=== PATIENT | female | born 1955 | race Caucasian/White ===

== ENCOUNTER → 2019-01-18 07:59 | Outpatient (CLI) | payer OTHER, SELFPAY ==
--- NOTE | 2019-01-18 | DI.RAD.S_ITS ---
PROCEDURE: XR LUMBAR SPINE 2-3V INDICATIONS: Low back pain TECHNIQUE: 3 views of the lumbar spine were acquired. COMPARISON: None. FINDINGS: Bones: 5 [id number] vertebrae are present. There is normal bony alignment. No acute vertebral body compression fractures. Moderate-severe multilevel lumbar spondylosis throughout the imaged spine. There is associated mid and lower lumbar facet arthropathy. No suspicious bony lesions. Soft tissues: Overlying bowel gas pattern is normal. No suspicious soft tissue calcifications. IMPRESSION: No acute osseous abnormalities or malalignment. Moderate-severe multilevel lumbar spondylosis. Dictated by: Tito Valle M.D. on 01/18/2019 at 8:58 Approved by: Tito Valle M.D. on 01/18/2019 at 9:00
== END ==
PROVIDERS: PCP Family Medicine; Visit Provider Family Medicine
DX: M54.5 Low back pain (principal); M47.816 Spondylosis without myelopathy or radiculopathy, lumbar region
CPT/HCPCS: 72100

== ENCOUNTER → 2019-07-14 07:38 | Outpatient (CLI) | payer MEDICARE, OTHER, SELFPAY ==
--- NOTE | 2019-07-14 | DI.RAD.S_ITS ---
PROCEDURE: XR HIP W PEL IF DONE RT 2V INDICATIONS: RIGHT HIP PAIN TECHNIQUE: AP pelvis with lateral view(s) of the right hip(s). COMPARISON: None. FINDINGS: Bones: No fractures or dislocations. Pelvic ring appears intact. No suspicious bony lesions. There is mild superior joint space narrowing seen of both hips, with associated remodeling changes with subchondral sclerosis and osteophyte formation. Age-appropriate lower lumbar spine degenerative changes are noted. Soft tissues: The visualized bowel gas pattern is normal. No suspicious soft tissue calcifications. Pelvic phleboliths are incidentally noted. IMPRESSION: Mild degenerative changes are seen of both hips by plain film. If it would be helpful for clinical management decision making, please consider a dedicated hip MRI for further evaluation (assuming that there is no contraindication). If there is strong clinical concern for a labral abnormality, this should be performed according to the arthrogram protocol. Dictated by: Efrain Patel M.D. on 07/14/2019 at 8:18 Approved by: Efrain Patel M.D. on 07/14/2019 at 8:20
== END ==
PROVIDERS: PCP Family Medicine; Referring Provider Family Medicine; Visit Provider Family Medicine
DX: M25.551 Pain in right hip (principal); M25.751 Osteophyte, right hip; M25.752 Osteophyte, left hip
CPT/HCPCS: 73502

== ENCOUNTER 2019-09-11 13:45 | Outpatient (RCR) | payer MEDICARE, OTHER, SELFPAY ==
--- NOTE | 2019-09-04 16:37 | PT.OIE ---
Current Diagnoses Other spondylosis with radiculopathy, cervical region (09/04/19) Other intervertebral disc degeneration, lumbar region (09/04/19) Abnormal posture (09/04/19) Weakness (09/04/19) Visit Care Team Role Provider Type Maverick Ribeiro MD Family Provider Non-Staff Primary Care Provider Specialty: Family Practice Address: [address], [address], [place], [address] Email: Reji Gunter MD Attending Provider Physician Referring Provider Specialty: Orthopedic Surgery Address: [address] [place] [address], [id number] Email: [email or web address] Physical Therapy Initial Evaluation PT-OP-A Visit Information Start: 09/03/19 11:03 Freq: Status: Active Protocol: Document 09/04/19 13:47 [facility] (Rec: 09/04/19 14:38 [facility] [id number]) Out-Patient Physical Therapy Visit Information Visit Information Visit Type Initial Evaluation Visit Note 03/16 Visit Start Time 13:48 Visit Stop Time 14:30 Total Visit Minutes 42 Visit Number 1 Number of FULL STACK PYTHON DEVELOPER Visits 0 PT-OP-B Current Condition Start: 09/03/19 11:03 Freq: Status: Active Protocol: Document 09/04/19 13:47 [facility] (Rec: 09/04/19 14:38 [facility] [id number]) Current Condition History of Current Condition Onset Date years ago Current Complaints LBP and neck pain History of Current Condition Pt reports was having severe hip pain 3 months ago and was having trouble wt bearing and started taking collegan and the pain improved. The pain came out of no where. SHe works for a neuro Chiropractor and he couldn't find anything . Pt is also having neck pain and back pain that have both been happening for 20-40 years or so and has slowly gotten progressively worse. She had injections in her neck but they haven't help [facility]. In the past 6 months , has noticed her neck cracking. 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 Pt goes to the couch to sleep often d/t sleeping and her back pain and otherwise cannot get sleep. Prior Treatments and Tests injections for neck, massage, PT a long time ago Treatment Goals Patient/Caregiver Goals Gain some strength back, move around with less pain Personal Factors Other Personal Factors That May Effect MS, neck pain, back pain, Therapy/Recovery osteoperosis, asthma PT-OP-C Subjective Start: 09/03/19 11:03 Freq: Status: Active Protocol: Document 09/04/19 13:47 [facility] (Rec: 09/04/19 14:38 [facility] [id number]) Patient Questionnaires Neck Disability Index NDI Score 11/50 Quick Dash- Upper Extremity Quick Dash UE Score 11.36 Quick Dash UE Impairment 1 to 19% Impaired (Score 1-19) OP-PT Pain Assessment Location neck Pain Location Details post neck and B UTs Intensity 5 Scale Used Numeric (0 - 10) Description Aching,Tightness,With Movement Description- Other can get up to 7-8/10 Frequency Constant Variations/Patterns cracking Other Pain Aggravating Factors flexed extended, movement of head, same position long time Pain Alleviating Factors Medication LB Pain Location Details lumbosacral Intensity 8 Scale Used Numeric (0 - 10) Description Aching,Tightness Frequency Daily Pain Aggravating Factors Standing,Sitting,Lifting Other Pain Aggravating Factors lay down too long, gardening, at night Pain Alleviating Factors Cold,Heat,Medication,Lying Supine PT-OP-F Manual Assessment Start: 09/03/19 11:03 Freq: Status: Active Protocol: Document 09/04/19 13:47 [facility] (Rec: 09/04/19 14:38 [facility] [id number]) Manual Assessments Joint Mobility Assessment Joint Mobility Assessment iliac crest & greater trochanter equal PT-OP-G Mobility & Gait Start: 09/03/19 11:03 Freq: Status: Active Protocol: Document 09/04/19 13:47 [facility] (Rec: 09/04/19 14:38 [facility] [id number]) OP Gait Assessment Comments Gait Comments Dec push off. Reaches w/LE, stiff UE PT-OP-J Posture/Palpation/Skin Start: 09/03/19 11:03 Freq: Status: Active Protocol: Document 09/04/19 13:47 [facility] (Rec: 09/04/19 14:38 [facility] [id number]) Posture Evaluation Braden Postural Classification System Braden Postural Classifications Posterior/Posterior Vertebral Compression Test 0 Elbow Flexion Test 0 Lumbar Protective Mechanism Left AP 0 Lumbar Protective Mechanism Right AP 1 Lumbar Protective Mechanism Left PA 1 Lumbar Protective Mechanism Right PA 0 PT-OP-K Range of Motion Start: 09/03/19 11:03 Freq: Status: Active Protocol: Document 09/04/19 13:47 [facility] (Rec: 09/04/19 14:38 [facility] [id number]) Cervical Spine Range of Motion Cervical Spine Active Degrees Flexion 28 Extension 27 Rotation Left 50 Rotation Right 48 Lateral Flexion Left 12 Lateral Flexion Right 17 ROM Limitations Soft Tissue Tightness,Pain Lumbar Spine Range of Motion Lumbar Spine Active Degrees Flexion 42 Extension 7 Rotation Left 63 Rotation Right 61 Lateral Flexion Left 10 Lateral Flexion Right 11 ROM Limitations Soft Tissue Tightness,Pain PT-OP-M Strength Start: 09/03/19 11:03 Freq: Status: Active Protocol: Document 09/04/19 13:47 [facility] (Rec: 09/04/19 14:38 [facility] [id number]) Shoulder Strength Shoulder Manual Muscle Testing Right Flexion 4+ Good+ Extension 4+ Good+ Abduction (C5) 4+ Good+ External Rotation 4 Good Internal Rotation 4+ Good+ Left Flexion 4+ Good+ Extension 4+ Good+ Abduction (C5) 4+ Good+ External Rotation 4 Good Internal Rotation 4+ Good+ Hip Strength Hip Manual Muscle Testing Right Flexion (L2) 4 Good Extension (S1) 3+ Fair+ Abduction 4+ Good+ External Rotation 4- Good- Internal Rotation 4 Good Left Flexion (L2) 4 Good Extension (S1) 3+ Fair+ Abduction 4+ Good+ External Rotation 4- Good- Internal Rotation 4 Good Knee Strength Knee Manual Muscle Testing Right Flexion (S2) 5 Normal Extension (L3) 5 Normal Left Flexion (S2) 5 Normal Extension (L3) 5 Normal Ankle/Foot Strength Ankle and Foot Manual Muscle Testing Right Dorsiflexion (L4) 5 Normal Plantarflexion (S1) 5 Normal Left Dorsiflexion (L4) 5 Normal Plantarflexion (S1) 5 Normal PT-OP-Q Treatments Start: 09/03/19 11:03 Freq: Status: Active Protocol: Document 09/04/19 13:47 [facility] (Rec: 09/04/19 14:38 [facility] [id number]) Therapeutic Exercises Standing Exercises wall posture Standing Exercise Name w/90/90 ER Side bilateral Reps/Minutes 10 PT-OP-T Assessment and Plan Start: 09/03/19 11:03 Freq: Status: Active Protocol: Document 09/04/19 13:47 [facility] (Rec: 09/04/19 14:38 [facility] [id number]) Physical Therapy Assessment Rehab Potential Rehabilitation Potential Good Evaluation Complexity Number of Personal Factors/Comorbidities 3 or More Number of Body Systems Impaired 4 or More Clinical Presentation at Evaluation Evolving Impairments Impairments Activity Tolerance,Functional Activities,Functional Mobility ,Pain,Posture,ROM,Soft Tissue Mobility,Strength Goals positioning Chain Saw Driver Goal (LTG) Pt will be able to keep comfortable in order to sleep through the night. LTG Duration 11/04/19 posture Short Term Goal (STG) Pt will present with good postural positioning. STG Duration 10/04/19 Snf Goal (LTG) Pt will show good postural stacking by scoring 5/5 on VCT in order to dec pain by improving postural stability. LTG Duration 11/04/19 strength Short Term Goal (STG) Pt will be indep w/HEP STG Duration 10/04/19 Chain Saw Driver Goal (LTG) Pt will have improved core stability as demonstrated by 4 /5 LPM and EFT LTG Duration 11/04/19 NDI Impairment 11/50 Snf Goal (LTG) Pt will have score of 2/50 or less to increase ability to participate in daily activities. Assessment Summary Assessment Pt presents w/chronic back and neck pain that limits her ability to do as much as she likes to. She is limited in her ROM and core stability and has impaired posture which likely contributes to her dec overall stability. A lot of her pain likely stems from her positioning for sitting, supine and standing posture. She would benefit from skilled PT in order to improve her pain and inc her ability to do more activities without limit . Physical Therapy Plan Frequency and Duration Frequency of Treatment 2x/Week Duration of Treatment 2 months Plan of Care Start Date 09/04/19 Plan of Care End Date 11/04/19 Therapeutic Interventions Therapeutic Interventions Aquatic Therapy,Balance Training,Gait Training,Home Exercise Program,Joint Mobilizations,Manual Therapy, Neuromuscular Re-education, Patient/Caregiver Education, Self-Care/Home Management,Soft Tissue Mobilization,Taping, Therapeutic Activities, Therapeutic Exercises Modalities Cold Pack/Ice Massage,Electric Stimulation,Traction- Mechanical,Ultrasound Next Visit Focus/Plan Next Note Type Treatment Note Next Visit Plan sleep position,supine core stability, postural edu, foam roll, STM to neck & back
--- NOTE | 2019-09-04 16:37 | PT.OPPOC ---
Physical, Occupational & Speech Therapy At [facility] Current Diagnoses Other spondylosis with radiculopathy, cervical region (09/04/19) Other intervertebral disc degeneration, lumbar region (09/04/19) Abnormal posture (09/04/19) Weakness (09/04/19) Visit Care Team Role Provider Type Maverick Ribeiro MD Family Provider Non-Staff Primary Care Provider Specialty: Family Practice Address: [address] [place] [address], [address], [place], [address] Email: Reji Gunter MD Attending Provider Physician Referring Provider Specialty: Orthopedic Surgery Address: [address] [place] [address], [place], [address] Email: [email or web address] Plan Of Care PT-OP-T Assessment and Plan Start: 09/03/19 11:03 Freq: Status: Active Protocol: Document 09/04/19 13:47 [facility] (Rec: 09/04/19 14:38 [facility] [id number]) Physical Therapy Assessment Rehab Potential Rehabilitation Potential Good Evaluation Complexity Number of Personal Factors/Comorbidities 3 or More Number of Body Systems Impaired 4 or More Clinical Presentation at Evaluation Evolving Impairments Impairments Activity Tolerance,Functional Activities,Functional Mobility ,Pain,Posture,ROM,Soft Tissue Mobility,Strength Goals positioning Child Psychologist Goal (LTG) Pt will be able to keep comfortable in order to sleep through the night. LTG Duration 11/04/19 posture Short Term Goal (STG) Pt will present with good postural positioning. STG Duration 10/04/19 Care Home Goal (LTG) Pt will show good postural stacking by scoring 5/5 on VCT in order to dec pain by improving postural stability. LTG Duration 11/04/19 strength Short Term Goal (STG) Pt will be indep w/HEP STG Duration 10/04/19 Care Home Goal (LTG) Pt will have improved core stability as demonstrated by 4 /5 LPM and EFT LTG Duration 11/04/19 NDI Impairment 11/50 Child Psychologist Goal (LTG) Pt will have score of 2/50 or less to increase ability to participate in daily activities. Assessment Summary Assessment Pt presents w/chronic back and neck pain that limits her ability to do as much as she likes to. She is limited in her ROM and core stability and has impaired posture which likely contributes to her dec overall stability. A lot of her pain likely stems from her positioning for sitting, supine and standing posture. She would benefit from skilled PT in order to improve her pain and inc her ability to do more activities without limit . Physical Therapy Plan Frequency and Duration Frequency of Treatment 2x/Week Duration of Treatment 2 months Plan of Care Start Date 09/04/19 Plan of Care End Date 11/04/19 Therapeutic Interventions Therapeutic Interventions Aquatic Therapy,Balance Training,Gait Training,Home Exercise Program,Joint Mobilizations,Manual Therapy, Neuromuscular Re-education, Patient/Caregiver Education, Self-Care/Home Management,Soft Tissue Mobilization,Taping, Therapeutic Activities, Therapeutic Exercises Modalities Cold Pack/Ice Massage,Electric Stimulation,Traction- Mechanical,Ultrasound Next Visit Focus/Plan Next Note Type Treatment Note Next Visit Plan sleep position,supine core stability, postural edu, foam roll, STM to neck & back Plan of Care Dates Plan of Care Start Date 09/04/19 Plan of Care End Date 11/04/19 Electronically Signed by: Minerva Mckeon, PT 09/04/19 [id number] Please Sign and Return: I have reviewed this Plan of Care and certify that the skilled therapy services above are required to meet the patient?s needs. Physician Signature Date Printed Name and Credentials Clinical Instructor Signature Printed Name and Credentials
--- NOTE | 2019-09-11 15:33 | PT.OTN ---
Current Diagnoses Other spondylosis with radiculopathy, cervical region (09/11/19) Other intervertebral disc degeneration, lumbar region (09/11/19) Abnormal posture (09/11/19) Weakness (09/11/19) Physical Therapy Treatment Note PT-OP-A Visit Information Start: 09/03/19 11:03 Freq: Status: Active Protocol: Document 09/11/19 13:45 [facility] (Rec: 09/11/19 15:33 [facility] [id number]) Out-Patient Physical Therapy Visit Information Visit Information Visit Type Treatment Note Visit Note 04/16 Visit Start Time 13:45 Visit Stop Time 14:30 Total Visit Minutes 45 Visit Number 2 Number of YOUTH LEADER Visits 0 PT-OP-B Current Condition Start: 09/03/19 11:03 Freq: Status: Active Protocol: Document 09/04/19 13:47 [facility] (Rec: 09/04/19 14:38 [facility] [id number]) Current Condition History of Current Condition Onset Date years ago Current Complaints LBP and neck pain History of Current Condition Pt reports was having severe hip pain 3 months ago and was having trouble wt bearing and started taking collegan and the pain improved. The pain came out of no where. SHe works for a neuro Chiropractor and he couldn't find anything . Pt is also having neck pain and back pain that have both been happening for 20-40 years or so and has slowly gotten progressively worse. She had injections in her neck but they haven't help [facility]. In the past 6 months , has noticed her neck cracking. 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 Pt goes to the couch to sleep often d/t sleeping and her back pain and otherwise cannot get sleep. Prior Treatments and Tests injections for neck, massage, PT a long time ago Treatment Goals Patient/Caregiver Goals Gain some strength back, move around with less pain Personal Factors Other Personal Factors That May Effect MS, neck pain, back pain, Therapy/Recovery osteoperosis, asthma PT-OP-C Subjective Start: 09/03/19 11:03 Freq: Status: Active Protocol: Document 09/11/19 13:45 [facility] (Rec: 09/11/19 15:33 [facility] [id number]) OP-PT Subjective Patient Comments Patient Comments Wants to review wall posture exericse PT-OP-F Manual Assessment Start: 09/03/19 11:03 Freq: Status: Active Protocol: Document 09/04/19 13:47 [facility] (Rec: 09/04/19 14:38 [facility] [id number]) Manual Assessments Joint Mobility Assessment Joint Mobility Assessment iliac crest & greater trochanter equal PT-OP-G Mobility & Gait Start: 09/03/19 11:03 Freq: Status: Active Protocol: Document 09/04/19 13:47 [facility] (Rec: 09/04/19 14:38 [facility] [id number]) OP Gait Assessment Comments Gait Comments Dec push off. Reaches w/LE, stiff UE PT-OP-J Posture/Palpation/Skin Start: 09/03/19 11:03 Freq: Status: Active Protocol: Document 09/04/19 13:47 [facility] (Rec: 09/04/19 14:38 [facility] [id number]) Posture Evaluation Braden Postural Classification System Braden Postural Classifications Posterior/Posterior Vertebral Compression Test 0 Elbow Flexion Test 0 Lumbar Protective Mechanism Left AP 0 Lumbar Protective Mechanism Right AP 1 Lumbar Protective Mechanism Left PA 1 Lumbar Protective Mechanism Right PA 0 PT-OP-K Range of Motion Start: 09/03/19 11:03 Freq: Status: Active Protocol: Document 09/04/19 13:47 [facility] (Rec: 09/04/19 14:38 [facility] [id number]) Cervical Spine Range of Motion Cervical Spine Active Degrees Flexion 28 Extension 27 Rotation Left 50 Rotation Right 48 Lateral Flexion Left 12 Lateral Flexion Right 17 ROM Limitations Soft Tissue Tightness,Pain Lumbar Spine Range of Motion Lumbar Spine Active Degrees Flexion 42 Extension 7 Rotation Left 63 Rotation Right 61 Lateral Flexion Left 10 Lateral Flexion Right 11 ROM Limitations Soft Tissue Tightness,Pain PT-OP-M Strength Start: 09/03/19 11:03 Freq: Status: Active Protocol: Document 09/04/19 13:47 [facility] (Rec: 09/04/19 14:38 [facility] [id number]) Shoulder Strength Shoulder Manual Muscle Testing Right Flexion 4+ Good+ Extension 4+ Good+ Abduction (C5) 4+ Good+ External Rotation 4 Good Internal Rotation 4+ Good+ Left Flexion 4+ Good+ Extension 4+ Good+ Abduction (C5) 4+ Good+ External Rotation 4 Good Internal Rotation 4+ Good+ Hip Strength Hip Manual Muscle Testing Right Flexion (L2) 4 Good Extension (S1) 3+ Fair+ Abduction 4+ Good+ External Rotation 4- Good- Internal Rotation 4 Good Left Flexion (L2) 4 Good Extension (S1) 3+ Fair+ Abduction 4+ Good+ External Rotation 4- Good- Internal Rotation 4 Good Knee Strength Knee Manual Muscle Testing Right Flexion (S2) 5 Normal Extension (L3) 5 Normal Left Flexion (S2) 5 Normal Extension (L3) 5 Normal Ankle/Foot Strength Ankle and Foot Manual Muscle Testing Right Dorsiflexion (L4) 5 Normal Plantarflexion (S1) 5 Normal Left Dorsiflexion (L4) 5 Normal Plantarflexion (S1) 5 Normal PT-OP-Q Treatments Start: 09/03/19 11:03 Freq: Status: Active Protocol: Document 09/11/19 13:45 [facility] (Rec: 09/11/19 15:33 [facility] [id number]) Therapeutic Exercises Supine Exercises foam roll Supine Exercise Name flex, abd, Habd Side bilateral Reps/Minutes 10 core series Supine Exercise Name flex B isometric Side bilateral Reps/Minutes 30 sec TA Supine Exercise Name w/heel slide above mat Side bilateral Reps/Minutes 15 Sidelying Exercises roll & reach Side bilateral Reps/Minutes 10 Therapeutic Activity Therapeutic Activity Sleep posture Name s/l & supine Comments use of pillows & towels, CHARISSA demo Manual Therapy Treatment Soft Tissue Mobilization ES/QL Body Location R>L Mobilization Type Rolling,Strumming Intensity/Depth Moderate Body Position Prone PT-OP-T Assessment and Plan Start: 09/03/19 11:03 Freq: Status: Active Protocol: Document 09/11/19 13:45 [facility] (Rec: 09/11/19 15:33 [facility] [id number]) Physical Therapy Assessment Goals positioning Development Consultant Goal (LTG) Pt will be able to keep comfortable in order to sleep through the night. LTG Duration 11/04/19 posture Short Term Goal (STG) Pt will present with good postural positioning. STG Duration 10/04/19 Senior Living Goal (LTG) Pt will show good postural stacking by scoring 5/5 on VCT in order to dec pain by improving postural stability. LTG Duration 11/04/19 strength Short Term Goal (STG) Pt will be indep w/HEP STG Duration 10/04/19 Senior Living Goal (LTG) Pt will have improved core stability as demonstrated by 4 /5 LPM and EFT LTG Duration 11/04/19 NDI Impairment 11/50 Development Consultant Goal (LTG) Pt will have score of 2/50 or less to increase ability to participate in daily activities. Assessment Summary Assessment Pt demonstrated understanding for exercsies & for sleep positioning. Improved comfort with educated sleep position. She had greater tightness in R >L paraspinals. Improved with STM. Physical Therapy Plan Frequency and Duration Frequency of Treatment 2x/Week Duration of Treatment 2 months Plan of Care Start Date 09/04/19 Plan of Care End Date 11/04/19 Next Visit Focus/Plan Next Note Type Treatment Note Next Visit Plan review HEP, hip, sacrum, innominate mobs
--- NOTE | 2020-01-03 08:45 | PT.OPDS ---
Current Diagnoses Other spondylosis with radiculopathy, cervical region (09/11/19) Other intervertebral disc degeneration, lumbar region (09/11/19) Abnormal posture (09/11/19) Weakness (09/11/19) Visit Care Team Role Provider Type Maverick Ribeiro MD Family Provider Non-Staff Primary Care Provider Specialty: Family Practice Address: [address], [address], [place], [address] Email: Reji Gunter MD Attending Provider Physician Referring Provider Specialty: Orthopedic Surgery Address: [address] [place] [address], [address] Email: [email or web address] Visit Number Visit Number 2 Discharge Summary PT-OP-T Assessment and Plan Start: 09/03/19 11:03 Freq: Status: Active Protocol: Document 01/03/20 08:44 [facility] (Rec: 01/03/20 08:45 [facility] [id number]) Physical Therapy Assessment Assessment Summary Assessment Pt is d/c at this time d/t attending 2 appts then cancelling rest d/t planned surgery. Pt planned to reschedule but has not. DC at this time d/t no longer attendign PT Physical Therapy Plan Discharge Physical Therapy Discharge Reasons No Longer Attending PT
== END 2020-01-18 13:30 | disposition home or self-care (01) ==
LOC: PHYS 13:45
PROVIDERS: Family Provider Family Medicine; PCP Family Medicine; Referring Provider Orthopaedic Surgery; Visit Provider Orthopaedic Surgery
DX: M47.22 Other spondylosis with radiculopathy, cervical region (principal); M51.36 Other intervertebral disc degeneration, lumbar region; R53.1 Weakness; R29.3 Abnormal posture
CPT/HCPCS: 97110; 97140; 97162; 97530

== ENCOUNTER → 2019-10-21 08:43 | Outpatient (CLI) | payer MEDICARE, OTHER, SELFPAY ==
[2019-10-22 18:17] LABS: COVID19 Sendout Not Detected (Not Detect)
== END ==
PROVIDERS: PCP Family Medicine; Visit Provider Physician Assistant
DX: Z11.59 Encounter for screening for other viral diseases (principal)
CPT/HCPCS: 87635

== ENCOUNTER 2019-10-24 09:04 | Day surgery (SDC) | payer MEDICARE, OTHER, SELFPAY ==
--- NOTE | 2019-10-23 18:33 | PM.PREOP ---
Pre-operative Note COVID-19 COVID-19 status: Negative Interval Note History & Physical reviewed/Exam performed by Physician: Yes Changes to H&P: No
--- NOTE | 2019-10-24 08:03 | PM.OP.1 ---
Operative Date/Time/Diagnoses Date of procedure: 10/24/19 Time of procedure: 10:45 Procedure & Clinicians Procedure: Preoperative diagnoses: 1. Significant right nuclear sclerotic cataract 2. Astigmatism which is to be corrected with a toric intraocular lens implant. 3. Multiple sclerosis 4. Asthma 5. HTN Postoperative diagnoses: 1. Cataract removal with phacoemulsification with toric posterior chamber intraocular lens implant placed. Procedure: Phacoemulsification with posterior chamber toric intraocular lens implant. Surgeon: Kimmy Thompson MD Complications: None Specimen: None Implant: [id number] [place] 012 Blood loss: None Anesthesia: Retrobulbar with monitored standby Description of procedure: Patient presents with a complaint of decreased vision due to cataract which is affecting activities of daily living including distance and reading. She has high astigmatism and wishes to correct this with a distance target. The patient wants surgery to improve vision and astigmatism and she understands there may still be residual prescription after healing. She has stable multiple sclerosis which could affect her anesthesia and has been evaluated preoperatively by the anesthesiologist. The patient was taken to the operating room and proparacaine drops placed. Indelible ink roca were placed at the 90 and 180 degree meridian. The patient was placed on the operating room table and given IV sedation. A retrobulbar block insert consisting of 6 cc of 2% xylocaine without epinephrine mixed half and half with 0.5% Marcaine with 1 cc of hyaluronidase added is placed between the medial and lateral 1/3 of the inferior orbital rim. The eye is manually massaged for 30 sec, prepped using Betadine solution, and draped in the usual sterile fashion. Temporal approach was made, a 1 mm side-port incision was made 90? from the proposed corneal wound. Phenylephrine 1.5% mixed with 1% xylocaine 0.2 cc was placed into the anterior chamber. Viscoat followed by Matteo was then placed. A 2.6 mm clear incision with a 2.6 mm blade was placed at the 170 degree meridian. A 360 degree capsulorrhexis style capsulotomy was then performed with a cystitome needle on a Healon. Hydrodelineation and hydrodissection were performed. The phacoemulsification unit is introduced, and sculpting used to groove the central lens. It is then removed in chopping mode. Epi nucleus is removed with epinuclear mode and irrigation aspiration was used to remove the peripheral cortex. The posterior capsule is polished. The intraocular lens is selected, inspected, power confirmed, and placed in the posterior chamber at the desired meridian of 012 degrees.. The pupil was not constricted. The wound was stromally hydrated and tested for leaks, there was none and it was left sutureless. Vigamox 0.1 cc was placed into the anterior chamber. Kenalog 0.2 cc was placed in the superior subconjunctival space. A drop of antibiotic and was placed and the eye was patched and shielded. The patient was stable and returned to the recovery room in excellent condition. Dictated by: Kimmy Thompson MD Copy to: [facility] Same procedure as scheduled: Yes
[2019-10-24] MEDS: PROPARACAINE 0.5% OPHTH SOL 2 DROPS EYE-OP (09:20)
[2019-10-24 09:30] VITALS: BP 151/89; PULSE 78; RESP 15; TEMP 36.9; O2SAT 99; BMI 20.6
[2019-10-24] MEDS: CATARACT EYE COMPOUND (10 DROPS/SYRINGE) 3 DROPS EYE-OP (09:44)
[2019-10-24] MEDS: CHONDROIDTIN/SOD HYALURONATE 1.05 ML SYRINGE INTRAOCULA (10:22)
[2019-10-24] MEDS: ERYTHROMYCIN OPHTH 1 GM OINT 1 APPLIC EYE-RIGHT (10:22)
[2019-10-24] MEDS: LIDOCAINE 2% 4 ML, BUPIVACAINE 0.5% (PF) 4 ML, HYALURONIDASE 150 UNIT INJ (10:23)
[2019-10-24] MEDS: HYALURONATE SODIUM 10 MG/ML SYRINGE INJ (10:23)
[2019-10-24] MEDS: TRIAMCINOLONE 50 MG/5 ML VIAL INJ (10:24)
[2019-10-24] MEDS: PHENYLEPHRINE/LIDOCAINE VIAL (OR) 0.2 ML EYE-OP (10:24)
[2019-10-24] MEDS: BALANCED SALT IRRIG SOLN NO.2 500 ML, EPINEPHrine 1 MG IRR (10:24)
[2019-10-24] MEDS: MOXIFLOXACIN INJ 5 MG/ML VIAL EYE-OP (10:25)
[2019-10-24 10:43] VITALS: BP 150/81; PULSE 67; RESP 16; TEMP 36.7; O2SAT 99
== END 2019-10-24 11:10 | disposition home or self-care (01) ==
LOC: OR 09:08
PROVIDERS: PCP Family Medicine; Referring Provider Family Medicine; Visit Provider Ophthalmology
PROC: (CPT 66984; principal; 2019-10-24 10:45)
DX: H25.11 Age-related nuclear cataract, right eye (principal); H52.201 Unspecified astigmatism, right eye; G35 Multiple sclerosis; J45.909 Unspecified asthma, uncomplicated; I10 Essential (primary) hypertension
CPT/HCPCS: 66984; J0171; J2250; J3010; J3301; J3470; V2787

== ENCOUNTER → 2019-11-04 08:45 | Outpatient (CLI) | payer MEDICARE, OTHER, SELFPAY ==
[2019-11-06 18:36] LABS: COVID19 Sendout Not Detected (Not Detected)
== END ==
PROVIDERS: PCP Family Medicine; Visit Provider Physician Assistant
DX: Z11.59 Encounter for screening for other viral diseases (principal)
CPT/HCPCS: 87635

== ENCOUNTER 2019-11-07 07:59 | Day surgery (SDC) | payer MEDICARE, OTHER, SELFPAY ==
--- NOTE | 2019-11-05 12:46 | PM.PREOP ---
Pre-operative Note COVID-19 COVID-19 status: Negative Interval Note History & Physical reviewed/Exam performed by Physician: Yes Changes to H&P: No
--- NOTE | 2019-11-07 08:10 | PM.OP.1 ---
Operative Date/Time/Diagnoses Date of procedure: 11/07/19 Time of procedure: 09:45 Procedure & Clinicians Procedure: Preoperative diagnoses: 1. Left significant nuclear sclerotic cataract 2. Astigmatism which is to be corrected with a toric intraocular lens implant. 3. Multiple sclerosis. 4. Asthma 5. Hypertension Postoperative diagnoses: 1. Cataract removal with phacoemulsification with toric posterior chamber intraocular lens implant placed. Procedure: Phacoemulsification with posterior chamber toric intraocular lens implant. Surgeon: Kimmy Thompson MD Complications: None Specimen: None Implant: [id number] [place] 162 Blood loss: None Anesthesia: Retrobulbar with monitored standby Description of procedure: Patient presents with a complaint of decreased vision due to cataract which is affecting activities of daily living distance and reading. she has stable multiple sclerosis and understands the risk during COVID-19 epidemic and wishes to proceed with surgery. She has had successful right cataract surgery 2 weeks ago.The patient wants surgery to improve vision and astigmatism. The patient was taken to the operating room and proparacaine drops placed. Indelible ink roca were placed at the 90 and 180 degree meridian. The patient was placed on the operating room table and given IV sedation. A retrobulbar block insert consisting of 6 cc of 2% xylocaine without epinephrine mixed half and half with 0.5% Marcaine with 1 cc of hyaluronidase added is placed between the medial and lateral 1/3 of the inferior orbital rim. The eye is manually massaged for 30 sec, prepped using Betadine solution, and draped in the usual sterile fashion. Temporal approach was made, a 1 mm side-port incision was made 90? from the proposed corneal wound. Phenylephrine 1.5% mixed with 1% xylocaine 0.2 cc was placed into the anterior chamber. Viscoat followed by Matteo was then placed. A 2.6 mm clear incision with a 2.6 mm blade was placed at the 170 degree meridian. A 360 degree capsulorrhexis style capsulotomy was then performed with a cystitome needle on a Healon. Hydrodelineation and hydrodissection were performed. The phacoemulsification unit is introduced, and sculpting used to groove the central lens. It is then removed in chopping mode. Epi nucleus is removed with epinuclear mode and irrigation aspiration was used to remove the peripheral cortex. The posterior capsule is polished. The intraocular lens is selected, inspected, power confirmed, and placed in the posterior chamber at the desired meridian of 162 degrees. The pupil was not constricted. The wound was stromally hydrated and tested for leaks, there was none and it was left sutureless. Vigamox 0.1 cc was placed into the anterior chamber. Kenalog 0.2 cc was placed in the superior subconjunctival space. A drop of antibiotic and was placed and the eye was patched and shielded. The patient was stable and returned to the recovery room in excellent condition. Dictated by: Kimmy Thompson MD Copy to: [facility] Same procedure as scheduled: Yes
[2019-11-07] MEDS: PROPARACAINE 0.5% OPHTH SOL 2 DROPS EYE-OP ×2 (08:44→09:44)
[2019-11-07] MEDS: CATARACT EYE COMPOUND (10 DROPS/SYRINGE) 3 DROPS EYE-OP (08:47)
[2019-11-07 08:49] VITALS: BP 157/93; PULSE 83; RESP 16; TEMP 36.2; O2SAT 99
[2019-11-07 08:57] VITALS: BMI 20.6
[2019-11-07] MEDS: LIDOCAINE 2% 4 ML, BUPIVACAINE 0.5% (PF) 4 ML, HYALURONIDASE 150 UNIT INJ (09:51)
[2019-11-07] MEDS: BALANCED SALT IRRIG SOLN NO.2 500 ML, EPINEPHrine 1 MG IRR (10:06)
[2019-11-07] MEDS: TRIAMCINOLONE 50 MG/5 ML VIAL INJ (10:07)
[2019-11-07] MEDS: HYALURONATE SODIUM 10 MG/ML SYRINGE INJ (10:08)
[2019-11-07] MEDS: MOXIFLOXACIN INJ 5 MG/ML VIAL EYE-OP (10:08)
[2019-11-07] MEDS: PHENYLEPHRINE/LIDOCAINE VIAL (OR) 0.2 ML EYE-OP (10:08)
[2019-11-07] MEDS: ERYTHROMYCIN OPHTH 1 GM OINT 1 APPLIC EYE-LEFT (10:09)
[2019-11-07] MEDS: CHONDROIDTIN/SOD HYALURONATE 1.05 ML SYRINGE INTRAOCULA (10:09)
[2019-11-07 10:45] VITALS: BP 151/85; PULSE 77; RESP 16; TEMP 36.6; O2SAT 98
== END 2019-11-07 10:42 | disposition home or self-care (01) ==
LOC: OR 08:01
PROVIDERS: PCP Family Medicine; Referring Provider Ophthalmology; Visit Provider Ophthalmology
PROC: (CPT 66984; principal; 2019-11-07 09:45)
DX: H25.12 Age-related nuclear cataract, left eye (principal); J45.909 Unspecified asthma, uncomplicated; I10 Essential (primary) hypertension; G35 Multiple sclerosis; H52.202 Unspecified astigmatism, left eye
CPT/HCPCS: 66984; J0171; J2250; J2704; J3010; J3301; J3470; V2787

== ENCOUNTER → 2019-12-24 08:31 | Outpatient (CLI) | payer MEDICARE, OTHER, SELFPAY ==
[2019-12-24 09:02] LABS: Add Manual Diff / Slide Review NO; Basophils Absolute Auto 0 /uL (0-100); Basophils Percent Auto 0.5 % (0-2); Eosinophils Absolute Auto 100 /uL (0-450); Eosinophils Percent Auto 1.4 % (2-4); Hematocrit 38.7 % (36-46); Hemoglobin 13.3 g/dL (12.0-16.0); Lymphocytes Absolute Auto 1300 /uL (1100-4500); Lymphocytes Percent Auto 28.5 % (25-40); Mean Corpuscular HGB Conc 34.5 % (30-36); Mean Corpuscular Hemoglobin 34.2 PG (26-34); Mean Corpuscular Volume 99.2 fL (80-100); Monocytes Absolute Auto 500 /uL (0-900); Monocytes Percent Auto 10.3 % (3-14); Neutrophils Absolute Auto 2700 /uL (1500-7000); Neutrophils Percent Auto 59.3 % (50-75); Platelet Count 220 X10^3/uL (150-400); Red Cell Distribution Width 13.7 % (11.6-14.8); White Blood Cell Count 4.6 X10^3/uL (4.5-11.0)
[2019-12-24 09:21] LABS: Alanine Aminotransferase 47 IU/L (<35); Albumin 4.3 g/dL (3.5-5.0); Albumin Globulin Ratio 1.3 (1.0-2.8); Alkaline Phosphatase 84 U/L (38-126); Aspartate Aminotransferase 55 IU/L (14-36); Bilirubin Total 0.4 mg/dL (0.2-1.3); Blood Urea Nitrogen 15 mg/dL (7-17); Calcium 9.5 mg/dL (8.4-10.2); Carbon Dioxide 29 mmol/L (22-32); Chloride 101 mmol/L (98-107); Estimated Glomerular Filt Rate > 60.0 mL/min (>60); Globulin 3.2 g/dL (1.7-4.1); Glucose 115 mg/dL (80-110); HEMOLYSIS < 15 (0-50); Potassium 4.2 mmol/L (3.4-5.1); Sodium 136 mmol/L (137-145); Total Protein 7.5 g/dL (6.3-8.2)
[2019-12-24 09:38] LABS: Vitamin D 25 Hydroxy (D3) 85.9 ng/mL (30.0-100.0)
== END ==
PROVIDERS: PCP Family Medicine; Referring Provider Family Medicine; Visit Provider Family Medicine
DX: N18.2 Chronic kidney disease, stage 2 (mild) (principal)
CPT/HCPCS: 36415; 80053; 82306; 85025

== ENCOUNTER → 2020-03-25 10:57 | Outpatient (CLI) | payer MEDICARE, OTHER, SELFPAY ==
--- NOTE | 2020-03-25 | DI.MG.S_ITS ---
BILATERAL DIGITAL SCREENING MAMMOGRAM 3D/2D WITH CAD: 03/25/2020 CLINICAL: Routine screening. Comparison is made to exams dated: 01/28/2017 mammogram, 01/10/2013 mammogram - [facility], and 10/07/2010 mammogram - [facility]. The tissue of both breasts is heterogeneously dense. This may lower the sensitivity of mammography. Current study was also evaluated with a Computer Aided Detection (CAD) system. No significant masses, calcifications, or other findings are seen in either breast. There has been no significant interval change. IMPRESSION: NEGATIVE There is no mammographic evidence of malignancy. A 1 year screening mammogram is recommended. This exam was interpreted at Station ID: [id number]. NOTE: For mammograms, a report in lay terms will be sent to the patient. Approximately 15% of breast malignancies will not be visualized mammographically. In the management of a palpable breast mass, a negative mammogram must not discourage biopsy of a clinically suspicious lesion. Electronically Signed By: Andrez cantu/sigifredo:03/25/2020 14:08:20 letter sent: Normal Exam ACR BI-RADS Category 1: Negative [id number]
== END ==
PROVIDERS: PCP Family Medicine; Referring Provider Family Medicine; Visit Provider Family Medicine
DX: Z12.31 Encounter for screening mammogram for malignant neoplasm of breast (principal)
CPT/HCPCS: 77063; 77067

== ENCOUNTER → 2020-04-12 10:06 | Outpatient (CLI) | payer MEDICARE, OTHER, SELFPAY ==
[2020-04-12 11:59] LABS: COVID19 -Nasal RAPID Negative (Negative)
== END ==
PROVIDERS: PCP Family Medicine; Visit Provider Nurse Practitioner
DX: Z01.812 Encounter for preprocedural laboratory examination (principal); Z20.822 Contact with and (suspected) exposure to COVID-19
CPT/HCPCS: 87635; C9803

== ENCOUNTER 2020-04-14 08:59 | Day surgery (SDC) | payer MEDICARE, OTHER, SELFPAY ==
--- NOTE | 2020-04-14 | PATH_ITS ---
[facility] Accession Number: [id number] . 01 Material submitted: . esophagus, E-G Junction - GE JUNCTION . 01 Clinical history: . A: RULE OUT GARRIDO'S . 02 Diagnosis: GE Junction: Ulcerative esophagitis Negative for fungal organisms by PAS stain. No viral cytopathic effect identified. No evidence of dysplasia or malignancy. MRV 04/18/2020 1316 Local . 02 Electronically signed: . Yumiko High MD, Pathologist NPI- [id number] . 01 Gross description: . GE JUNCTION: Received in formalin are 2 fragment(s) of cardoso, soft tissue measuring 0.1 x 0.1 x 0.1 cm to 0.4 x 0.2 x 0.2 cm submitted entirely in 1 cassette(s) /BERNY 04/15/2020 1909 Local . 02 Microscopic: . A PAS stain is performed to evaluate for fungal organism and is negative. The control stained appropriately. . 02 Pathologist provided ICD-10: Z12.11, K21.9, K20.90 . 02 CPT . 716122, [id number] Performed at: 01 [facility] [address], [place], [place] [id number] MD Reji Howard MD Phone: [phone] Performed at: 02 [facility] [address] [place], [place] [id number] MD Mary Gaxiola MD Phone: [phone]
[2020-04-14 09:21] VITALS: BP 171/103; PULSE 80; RESP 16; TEMP 36.4; O2SAT 99; BMI 20.8
[2020-04-14] MEDS: LACTATED RINGERS 1,000 ML 200 ML IV (09:32)
[2020-04-14 09:37] VITALS: BP 156/104
--- NOTE | 2020-04-14 10:10 | PM.PREOP ---
Pre-operative Note Interval Note History & Physical reviewed/Exam performed by Physician: Yes Changes to H&P: No
--- NOTE | 2020-04-14 10:42 | SUR.OPER ---
MEDICATED FOR ELEVATED BLOOD PRESSURE, REQUIRED INCREASED SEDATION THROUGHOUT NEVER WENT ASLEEP
[2020-04-14] MEDS: LIDOCAINE 4% SOLN 50 ML 20 ML TOP (10:47)
[2020-04-14] MEDS: MIDAZOLAM 5 MG/5 ML VIAL IV (10:48)
[2020-04-14] MEDS: fentaNYL 250 MCG/5 ML INJ IV (10:49)
[2020-04-14] MEDS: METOPROLOL TARTRATE 5 MG/5 ML INJ IV (10:51)
--- NOTE | 2020-04-14 10:54 | PM.OP.ENDO ---
Operative Date/Time/Diagnoses Date of procedure: 04/14/20 Time of procedure: 10:54 Pre-op diagnosis: GERD, abdominal pain, screening colonoscopy Post-op diagnosis: same Procedure & Clinicians Study performed: Esophagoduodenoscopy Colonoscopy Same procedure as scheduled: Yes Indications: 65-year-old woman with GERD and epigastric pain here for EGD and screening colonoscopy Surgeon: Zaki Nicholson Procedure Notes Procedure in detail: Patient placed in left lateral decubitus position. Time out was performed. Procedural sedation was administered with Versed and Fentanyl. A bite block was placed. the scope was inserted into the mouth and advanced through the esophagus and into the stomach. The pylorus was intubated and the duodenum was normal to the 2nd portion. The scope was retroflexed within the stomach and there was a small hiatal hernia. No ulcers, or gastritis. The scope was withdrawn into the esophagus. There was moderate esophagitis at the GE junction concerning in its appearance for Yadav's esophagus multiple random biopsies were taking with the forceps. Stomach was desufflated and scope removed. Examination began with a thorough inspection of the perianal area there was no evidence of fissures, fistulae, external hemorrhoids or cutaneous malignancy. The colonoscopy scope was then placed into the anal canal and was advanced to the cecum, which was identified by the ileocecal valve, the appendiceal orifice and the confluence of the taenia. The scope was then slowly withdrawn examining colon thoroughly in all directions, irrigating it of any residual stool. No colonic polyps or masses Sigmoid diverticulosis Grade 2 internal hemorrhoids The patient tolerated the procedure well. They will be discharged once criteria are met. The prep was of good/excellent quality. The withdrawl time was 6 minutes. The sedation time was 45 minutes. Findings: hiatal hernia, internal hemorrhoids and other findings (Esophagitis) Specimen(s): other (GE junction) Complications: none Impression: Esophagitis, normal colonoscopy Post-procedure Recommendations: Colonscopy in 10 years and Start medication(s) (Omeprazole 20 mg daily) Disposition: same day surgery
[2020-04-14 11:00] VITALS: BP 157/86; PULSE 77; RESP 14; TEMP 36.5; O2SAT 98
[2020-04-14 11:05] VITALS: BP 116/85; PULSE 73; RESP 16; O2SAT 99
[2020-04-14 11:10] VITALS: BP 149/92; PULSE 75; RESP 16; O2SAT 99
[2020-04-14 11:14] VITALS: BP 132/94; PULSE 71; RESP 13; TEMP 36.6; O2SAT 98
== END 2020-04-14 11:27 | disposition home or self-care (01) ==
PROVIDERS: PCP Family Medicine; Referring Provider Family Medicine; Visit Provider Surgery
PROC: 0DJ08ZZ Inspection of Upper Intestinal Tract, Via Natural or Artificial Opening Endoscopic (ICD-10-PCS; CPT 43235; principal; 2020-04-14 10:00)
PROC: 0DJD8ZZ Inspection of Lower Intestinal Tract, Via Natural or Artificial Opening Endoscopic (ICD-10-PCS; CPT 45378; 2020-04-14 10:00)
DX: Z12.11 Encounter for screening for malignant neoplasm of colon (principal); K21.00 Gastro-esophageal reflux disease with esophagitis, without bleeding; I10 Essential (primary) hypertension; J45.909 Unspecified asthma, uncomplicated; K57.30 Diverticulosis of large intestine without perforation or abscess without bleeding; K44.9 Diaphragmatic hernia without obstruction or gangrene; K64.1 Second degree hemorrhoids; K22.10 Ulcer of esophagus without bleeding
CPT/HCPCS: 43239; G0121; 99152; 99153; J2250; J3010

== ENCOUNTER 2020-08-29 11:10 | Emergency (ER) | payer MEDICARE, OTHER, SELFPAY ==
[2020-08-29 11:17] VITALS: BP 160/93; PULSE 71; RESP 14; TEMP 36.2; O2SAT 99; BMI 21.9
--- NOTE | 2020-08-29 11:24 | DI.CT.S_ITS ---
PROCEDURE: CT HEAD/BRAIN WO CON INDICATIONS: head pain for approx 1 month,feeling out of it for a few day TECHNIQUE: Noncontrast 4.5 mm thick angled axial sections acquired from the foramen magnum to the vertex, with coronal and sagittal reformats. For radiation dose reduction, the following was used: automated exposure control, adjustment of mA and/or kV according to patient size. COMPARISON: [facility], MR, MR MS BRAIN WITH/WITHOUT CONTRAST, 11/27/2018, 10:07. FINDINGS: Image quality: Excellent. CSF spaces: Basal cisterns are patent. No extra-axial fluid collections. The ventricles are symmetric in size and shape. Brain: No intracranial bleeds or masses. There is cerebral volume loss for age, with resultant ventricular and sulcal prominence. There are periventricular and deep white matter chronic small vessel ischemic changes. Prominent right basal ganglia perivascular spaces stable compared to prior MRI. There is intracranial internal carotid artery and vertebral artery atherosclerosis. Skull and face: Calvarium and visualized facial bones appear intact, without suspicious lesions. Sinuses: Visualized sinuses and mastoids are clear. IMPRESSION: No acute intracranial disease process. Dictated by: Urszula Vogel MD, PhD on 08/29/2020 at 11:40 Approved by: Urszula Vogel MD, PhD on 08/29/2020 at 11:43
--- NOTE | 2020-08-29 15:52 | ED_ITS ---
HPI - Headache General Chief Complaint: Headache Stated Complaint: headache x 1 month, increasing severity, confusion Time Seen by Provider: 08/29/20 15:52 Source: patient Mode of arrival: Ambulatory Limitations: no limitations History of Present Illness HPI Narrative: This is a 65-year-old female comes emergency department complaint of headache. Patient has had headache for the past month. She states it is kind of her overall head. She has had headaches multiple times in the past but this has been more prolonged. She states she saw her primary care physician who described Fioricet which has been helpful but becoming less useful. Patient does take Soma daily as well as tramadol. She did stop these recently. She denies fevers or chills. She denies any other symptoms. No neurologic symptoms. She has states she has been more confused and forgetting things like putting the coffee pot in the fence maker when she makes coffee. She has had some difficulty with sleep. She denies any numbness, tingling or weakness. She has not had any gait changes. She denies chest pain, shortness of breath, na usea or vomiting. She denies any GI or urinary symptoms. Related Data Home Medications Medication Instructions Recorded Confirmed albuterol sulfate 1 inh INHALATION QID PRN 10/24/19 04/14/20 carisoprodol 350 mg PO BID 10/24/19 04/14/20 lorazepam 1 mg PO DAILY PRN 10/24/19 04/14/20 ascorbate calcium (vitamin C) 500 500 mg PO DAILY 04/09/20 04/14/20 mg tablet cholecalciferol (vitamin D3) 10 10 mcg PO DAILY 04/09/20 04/14/20 mcg (400 unit) capsule microfibril. collagen hemostat 1 applic TOPICAL ONCE 04/09/20 04/14/20 turmeric 400 mg capsule mg PO 04/09/20 04/09/20 diltiazem HCl 240 mg PO DAILY 04/14/20 04/14/20 fluticasone propion-salmeterol 1 inh INHALATION BID 04/14/20 04/14/20 [Advair Diskus] Previous Rx's Medication Instructions Recorded omeprazole 20 mg PO DAILY #60 cap 04/14/20 Allergies Allergy/AdvReac Type Severity Reaction Status Date / Time No Known Drug Allergies Allergy Verified 08/29/20 11:18 Review of Systems Review of Systems ROS Unobtainable: All systems reviewed & are unremarkable except as noted in HPI and below Patient History Medical History Asthma Cat allergies History of Jaujq-Venvkgesa-Ynmdb (WPW) syndrome (~1994) HTN (hypertension) Multiple sclerosis Seasonal allergies Family History Mother Hypertension Social History marital status: household members: spouse occupational status: previously employed Smoking Status: Former smoker alcohol intake: current substance use type: does not use Smoking Status: Former smoker alcohol intake frequency: 0-2 drinks per day Substance Use Type: does not use Exam Narrative Exam Narrative: GEN: well nourished, well appearing female, alert and oriented x 3, patient appears to be in mild distress. HEENT: Atraumatic, pupils are equal round reactive to light, extraocular movements are intact, no photophobia, nares are clear, TMs are clear with no fluid, there is no conjunctival pallor. Throat is clear without any exudates, erythema, tonsillar enlargement or uvular deviation, no facial droop HEART: Regular rate and rhythm without murmur, clicks, rubs. Pulses equal bilateral upper extremities. LUNGS:Lungs clear to auscultation, no wheezes, rales, crackles, chest moves symmetrically ABD:bowel sounds normal, soft, non-tender, no guarding, rebound, rigidity, no masses noted, no hepatosplenomegaly :No CVA tenderness MSCL: Non-tender, no muscle atrophy, muscles strength 5/5 upper and lower extremities, full range of motion, normal gait NEURO:CN 2-12 intact, sensation normal SKIN: No rash, erythema or skin changes noted. Initial Vital Signs Initial Vital Signs: Vital Signs Temperature 97.1 F L 08/29/20 11:17 Pulse Rate 71 08/29/20 11:17 Respiratory Rate 14 08/29/20 11:17 Blood Pressure 160/93 H 08/29/20 11:17 Pulse Oximetry 99 08/29/20 11:17 Scores GCS Barbeau coma scale eye opening: Spontaneous Barbeau coma scale verbal response: Orientated Kristy coma scale motor response: Obey commands Kristy coma scale total score: 15 Course Orders Ordered: ED Orders 08/29/20 11:24 CT head/brain wo con Stat 08/29/20 16:20 Basic Metabolic Panel Stat Complete Blood Count AUTO DIFF Stat Discontinued Medications Ketorolac Tromethamine (Ketorolac 30 Mg/Ml Vial) 30 mg IM NOW ONE Stop: 08/29/20 16:04 Last Admin: 08/29/20 16:53 Dose: 30 mg Documented by: MARIANA Ondansetron HCl (Ondansetron 4 Mg Odt) 4 mg SL NOW ONE Stop: 08/29/20 16:04 Last Admin: 08/29/20 16:52 Dose: 4 mg Documented by: MARIANA Vital Signs Vital signs: Vital Signs - 8 hr 08/29/20 17:54 Pulse Rate 64 Respiratory Rate 12 Blood Pressure 155/84 H Pulse Oximetry 98 MDM - Headache Lab Data Attestation: I reviewed the patient's lab results. Result diagrams: 08/29/20 16:20 08/29/20 16:20 Labs: Lab Results 08/29/20 08/29/20 Range/Units 16:20 16:20 WBC 4.4 L (4.5-11.0) X10^3/uL RBC 3.55 L (4.0-5.2) X10^6/uL Hgb 11.8 L (12.0-16.0) g/dL Hct 35.0 L (36-46) % MCV 98.4 (80-100) fL MCH 33.1 (26-34) PG MCHC 33.6 (30-36) % RDW 13.3 (11.6-14.8) % Plt Count 177 (150-400) X10^3/uL Neut % (Auto) 53.6 (50-75) % Lymph % (Auto) 33.4 (25-40) % Davie % (Auto) 9.5 (3-14) % Eos % (Auto) 2.9 (2-4) % Baso % (Auto) 0.6 (0-2) % Neut # (Auto) 2400 (3917-6641) /uL Lymph # (Auto) 1500 (4638-2178) /uL Davie # (Auto) 400 (0-900) /uL Eos # (Auto) 100 (0-450) /uL Baso # (Auto) 0 (0-100) /uL Sodium 132 L (137-145) mmol/L Potassium 3.9 (3.4-5.1) mmol/L Chloride 101 (98-107) mmol/L Carbon Dioxide 25 (22-32) mmol/L BUN 18 H (7-17) mg/dL Creatinine 0.83 (0.52-1.04) mg/dL Estimated GFR > 60.0 (>60) mL/min BUN/Creatinine Ratio 21.7 (6-22) Glucose 84 (80-110) mg/dL Calcium 8.8 (8.4-10.2) mg/dL Imaging Data CT scan - head: Radiologist's Impression: [address] [id number] Scan ReportSigned Patient: Brooklyn Watts EMR#: [id number]: 4Acct:[id number]/Sex: 65 / FDate of Service: 08/29/20Loc: EDAccession Number: [id number] Procedure: CT head/brain wo con Ordering Provider: Marilee Logan D.O. PROCEDURE: CT HEAD/BRAIN WO CON INDICATIONS: head pain for approx 1 month,feeling out of it for a few day TECHNIQUE: Noncontrast 4.5 mm thick angled axial sections acquired from the foramen magnum to the vertex, with coronal and sagittal reformats. For radiation dose reduction, the following was used: automated exposure control, adjustment of mA and/or kV according to patient size. COMPARISON: [facility], MR, MR MS BRAIN WITH/WITHOUT CONTRAST, 11/27/2018, 10:07. FINDINGS: Image quality: Excellent. CSF spaces: Basal cisterns are patent. No extra-axial fluid collections. The ventricles are symmetric in size and shape. Brain: No intracranial bleeds or masses. There is cerebral volume loss for a ge, with resultant ventricular and sulcal prominence. There are periventricular and deep white matter chronic small vessel ischemic changes. Prominent right basal ganglia perivascular spaces stable compared to prior MRI. There is intracranial internal carotid artery and vertebral artery atherosclerosis. Skull and face: Calvarium and visualized facial bones appear intact, without suspicious lesions. Sinuses: Visualized sinuses and mastoids are clear. IMPRESSION: No acute intracranial disease process. Dictated by: Urszula Vogel MD, PhD on 08/29/2020 at 11:40 Approved by: Urszula Vogel MD, PhD on 08/29/2020 at 11:43 [facility] Narrative Medical decision making narrative: Patient comes in with a headache for 1 month, patient is alert, appropriate here in the department. Her neurologic exam is reassuring. She is able to get up out of bed retrieve her phone and return without any issues with a normal gait. Patient has had headaches in the past. She is on tramadol and Soma daily but has decreased these. She was given Fioricet which is helpful. Head CT is negative. Patient has some mild lab abnormalities but do not clearly delineated cause. She does appear to have any infectious cause today. Does not appear to have any other neurologic or suspicious changes such as dissection, stroke or other emergent cause of her headaches today. Discharge Plan Departure Patient Disposition: Home Clinical Impression: Headache Instructions: DI for Headache Activity Restrictions/Additional Instructions: Follow up with primary care for recheck and to follow up on your lab changes. Your labs show a mildly low white blood cell count, also have a mildly decreased hemoglobin in comparison to 2020. Your sodium is mildly low today at 132 and your BUN is 18 show you are a little dehydrated. Make sure you drink plenty of fluids. Please return for fevers, lightheadedness or passing out, rapidly worsening headaches, new vision changes, difficulty with speech, numbness, tingling or w eakness, facial droop or other new or concerning symptoms. Prescriptions: No Action ascorbate calcium (vitamin C) 500 mg tablet 500 mg PO DAILY RF: 0 cholecalciferol (vitamin D3) 10 mcg (400 unit) capsule 10 mcg PO DAILY RF: 0 turmeric 400 mg capsule PO RF: 0 microfibril. collagen hemostat Powder 1 applic topical ONCE RF: 0 albuterol sulfate 90 mcg/actuation Hfa Aerosol Inhaler 1 inh INHALATION QID PRN (Reason: asthma) RF: 0 carisoprodol 350 mg Tablet 350 mg PO BID RF: 0 lorazepam 1 mg Tablet 1 mg PO DAILY PRN (Reason: Anxiety) RF: 0 fluticasone propion-salmeterol [Advair Diskus] 250-50 mcg/dose Blister With Device 1 inh INHALATION BID RF: 0 diltiazem HCl 240 mg Capsule,Ext.Rel 24h Degradable 240 mg PO DAILY RF: 0 omeprazole 20 mg capsule,delayed release(DR/EC) 20 mg PO DAILY Qty: 60 RF: 6 Referrals: Maverick Ribeiro MD [Primary Care Provider] -
[2020-08-29 16:27] LABS: Add Manual Diff / Slide Review NO; Basophils Absolute Auto 0 /uL (0-100); Basophils Percent Auto 0.6 % (0-2); Eosinophils Absolute Auto 100 /uL (0-450); Eosinophils Percent Auto 2.9 % (2-4); Hemoglobin 11.8 g/dL (12.0-16.0); Lymphocytes Absolute Auto 1500 /uL (1100-4500); Lymphocytes Percent Auto 33.4 % (25-40); Mean Corpuscular HGB Conc 33.6 % (30-36); Mean Corpuscular Hemoglobin 33.1 PG (26-34); Mean Corpuscular Volume 98.4 fL (80-100); Monocytes Absolute Auto 400 /uL (0-900); Monocytes Percent Auto 9.5 % (3-14); Neutrophils Absolute Auto 2400 /uL (1500-7000); Neutrophils Percent Auto 53.6 % (50-75); Platelet Count 177 X10^3/uL (150-400); Red Blood Cell Count 3.55 X10^6/uL (4.0-5.2); Red Cell Distribution Width 13.3 % (11.6-14.8); White Blood Cell Count 4.4 X10^3/uL (4.5-11.0)
[2020-08-29 16:39] LABS: BUN Creatinine Ratio 21.7 (6-22); Blood Urea Nitrogen 18 mg/dL (7-17); Calcium 8.8 mg/dL (8.4-10.2); Carbon Dioxide 25 mmol/L (22-32); Chloride 101 mmol/L (98-107); Estimated Glomerular Filt Rate > 60.0 mL/min (>60); Glucose 84 mg/dL (80-110); HEMOLYSIS < 15 (0-50); Potassium 3.9 mmol/L (3.4-5.1); Sodium 132 mmol/L (137-145)
[2020-08-29] MEDS: ONDANSETRON 4 MG ODT SL (16:52)
[2020-08-29] MEDS: KETOROLAC 30 MG/ML VIAL IM (16:53)
[2020-08-29 17:54] VITALS: BP 155/84; PULSE 64; RESP 12; O2SAT 98
== END 2020-08-29 18:00 | disposition home or self-care (01) ==
PROVIDERS: Emergency Provider Emergency Medicine; PCP Family Medicine
DX: R51.9 Headache, unspecified (principal)
CPT/HCPCS: 36415; 70450; 80048; 85025; 96372; 99284; J1885

== ENCOUNTER → 2020-09-03 08:36 | Outpatient (CLI) | payer MEDICARE, OTHER, SELFPAY ==
[2020-09-03 10:32] LABS: Erythrocyte Sedimentation Rate 12 MM/HR (0-20)
== END ==
PROVIDERS: PCP Family Medicine; Referring Provider Family Medicine; Visit Provider Family Medicine
DX: R51.9 Headache, unspecified (principal)
CPT/HCPCS: 36415; 85651

== ENCOUNTER → 2020-09-12 08:38 | Outpatient (CLI) | payer MEDICARE, OTHER, SELFPAY ==
--- NOTE | 2020-09-12 | DI.MRI.S_ITS ---
PROCEDURE: MR HEAD/BRAIN WO/W CON INDICATIONS: Headache, unspecified TECHNIQUE: Noncontrast axial T1 spin echo, axial T2 fast spin echo, sagittal and axial FLAIR, coronal T2 fast spin echo, axial gradient echo, axial diffusion and ADC through the brain. After the administration of contrast, axial and coronal T1 spin echo with fat saturation through the brain. COMPARISON: [facility], MR, MR MS BRAIN WITH/WITHOUT CONTRAST, 11/27/2018, 10:07. [facility], CT, CT HEAD/BRAIN WO CON, 08/29/2020, 11:32. FINDINGS: Image quality: Excellent. CSF spaces: Basal cisterns are patent. No extra-axial fluid collections. Ventricles are normal in size and shape. Brain: No midline shift. No intracranial bleeds or masses. No abnormal intracranial enhancement. There is cerebral volume loss for age. A few scattered foci of T2 weighted hyperintensity can again be seen within the periventricular and deep white matter. The brainstem appears normal. Diffusion-weighted images demonstrate no acute ischemic insults. No chronic ischemic insults. Normal intravascular flow voids are present. Skull and face: Calvarial marrow is normal in signal. Orbits appear normal. Note is made of bilateral lens replacements. Sinuses: Sinuses and mastoids appear clear. IMPRESSION: Unremarkable intracranial study, without an imaging explanation found for the patient's presenting history of headache. Stable white matter foci are seen. In a patient of this age, these are statistically most likely related to age appropriate chronic small vessel ischemic change. No masses or abnormal enhancement can be seen. Dictated by: Efrain Patel M.D. on 09/12/2020 at 13:36 Approved by: Efrain Patel M.D. on 09/12/2020 at 13:38
== END ==
PROVIDERS: PCP Family Medicine; Referring Provider Family Medicine; Visit Provider Family Medicine
DX: R51.9 Headache, unspecified (principal); R42 Dizziness and giddiness; G35 Multiple sclerosis
CPT/HCPCS: 70553

== ENCOUNTER → 2020-11-29 08:45 | Outpatient (CLI) | payer MEDICARE, OTHER, SELFPAY ==
[2020-11-29 09:04] LABS: COVID19 -Nasal RAPID Negative (Negative)
== END ==
PROVIDERS: PCP Family Medicine; Visit Provider Physician Assistant
DX: Z20.822 Contact with and (suspected) exposure to COVID-19 (principal); J02.9 Acute pharyngitis, unspecified; R05 Cough
CPT/HCPCS: 87635

== ENCOUNTER → 2021-04-14 11:05 | Outpatient (CLI) | payer MEDICARE, OTHER, SELFPAY ==
--- NOTE | 2021-04-14 | DI.MRI.S_ITS ---
PROCEDURE: MR STROKE Pre- and post-contrast brain MRI, non-contrast brain MR angiogram, pre- and postcontrast neck MR angiogram INDICATIONS: Transient cerebral ischemic attack, unspecified TECHNIQUE: Brain: Noncontrast axial T1 spin echo, axial T2 fast spin echo, sagittal and axial FLAIR, coronal T2 fast spin echo, axial gradient echo, axial diffusion and ADC through the brain. After the administration of contrast, axial 3D VIBE of the cranial vasculature and brain. Brain MRA: Non-contrast 3-D time of flight MR angiogram, with multiple uhuyxel-qgwphvxva-rihbmyznyl (MIP) reformats performed. Neck MRA: Axial and sagittal TruFISP through the neck. Coronal dynamic MR angiogram during administration of contrast in the arterial and venous phases, with 3-dimenstional pqpdreb-zskwjgzwe-hthqkcueok (MIP) reformats constructed from subtraction images. COMPARISON: None. FINDINGS: Image quality: Excellent. BRAIN: CSF spaces: Ventricles are normal in size and shape. Basal cisterns are patent. No extra-axial fluid collections. Brain: No intracranial bleeds or mass effects. Ortez-white matter interface is normal. Diffusion weighted images show no acute ischemic insults. Brainstem appears normal. Normal intravascular flow voids are present. No abnormal intracranial enhancement. Skull and face: Calvarial marrow signal is normal. Orbits appear normal. Sinuses: Sinuses and mastoids are clear. BRAIN MR ANGIOGRAM: Anterior circulation: Intracranial internal carotid arteries are normal in size and enhancement. The flow within the paired anterior cerebral arteries is normal and symmetric. The flow within the middle cerebral arteries is normal and symmetric. The anterior communicating artery is seen. No stenoses, occlusions, or aneurysms. Posterior circulation: The visualized portions of the vertebral arteries demonstrate normal caliber, and join to form a normal appearing basilar artery. The flow within the posterior cerebral arteries is normal and symmetric. No stenoses, occlusions, or aneurysms. NECK MR ANGIOGRAM: Carotids: Great vessels demonstrate a conventional anatomy as they arise from the aortic arch. The origins of the common carotid arteries appear patent. The calibers and courses of both common carotid arteries are normal. The bifurcation regions appear normal bilaterally. The internal carotid arteries demonstrate normal course and caliber. Posterior circulation: The origins of the vertebral arteries appear patent. More superior portions of both vertebral arteries demonstrate normal course and caliber, and join to form a normal appearing basilar artery. Miscellaneous: Subclavian arteries appear patent. Pre-contrast images through the neck show no soft tissue abnormalities. IMPRESSION: BRAIN MRI: No acute infarct or other acute intracranial finding. Mild global cerebral volume loss and chronic microvascular ischemic changes, seen on prior studies. BRAIN MR ANGIOGRAM: No hemodynamically significant stenosis of the major intracranial arterial circulation. NECK MR ANGIOGRAM: No hemodynamically significant stenosis of the major extracranial arterial circulation. Dictated by: Luis Manuel Jordan M.D. on 04/14/2021 at 12:06 Approved by: Luis Manuel Jordan M.D. on 04/14/2021 at 12:10
== END ==
PROVIDERS: PCP Family Medicine; Referring Provider Family Medicine; Visit Provider Family Medicine
DX: G45.9 Transient cerebral ischemic attack, unspecified (principal); R41.3 Other amnesia; R41.0 Disorientation, unspecified; R47.81 Slurred speech
CPT/HCPCS: 70548; 70553

== ENCOUNTER → 2021-12-23 07:42 | Outpatient (CLI) | payer MEDICARE, OTHER, SELFPAY ==
--- NOTE | 2021-12-23 07:43 | DI.RAD.S_ITS ---
PROCEDURE: XR HIP W PEL IF DONE LT 2V INDICATIONS: hip pain TECHNIQUE: AP pelvis with lateral view(s) of the left hip(s). COMPARISON: [facility], CR, XR HIP W PEL IF DONE RT 2V, 07/14/2019, 7:41. FINDINGS: Bones: Mild bilateral hip arthrosis. No acute fracture or dislocation. Lumbosacral spondylosis. Soft tissues: The visualized bowel gas pattern is normal. No suspicious soft tissue calcifications. IMPRESSION: No acute radiographic abnormality. Mild hip arthrosis. If there is high concern for further derangement, consider MRI evaluation. Dictated by: Mark Hughes M.D. on 12/23/2021 at 11:28 Approved by: Mark Hughes M.D. on 12/23/2021 at 11:29
== END ==
PROVIDERS: PCP Family Medicine; Referring Provider Nurse Practitioner Family; Visit Provider Nurse Practitioner Family
DX: S76.012A Strain of muscle, fascia and tendon of left hip, initial encounter (principal); M16.0 Bilateral primary osteoarthritis of hip
CPT/HCPCS: 73502

== ENCOUNTER → 2022-02-19 07:33 | Outpatient (CLI) | payer MEDICARE, OTHER, SELFPAY ==
[2022-02-19 10:06] LABS: Add Manual Diff / Slide Review NO; Basophils Absolute Auto 0 /uL (0-100); Basophils Percent Auto 0.5 % (0-2); Eosinophils Absolute Auto 100 /uL (0-450); Eosinophils Percent Auto 2.1 % (2-4); Hematocrit 39.6 % (36-46); Hemoglobin 13.3 g/dL (12.0-16.0); Lymphocytes Absolute Auto 1700 /uL (1100-4500); Lymphocytes Percent Auto 27.5 % (25-40); Mean Corpuscular HGB Conc 33.6 % (30-36); Mean Corpuscular Hemoglobin 31.8 PG (26-34); Mean Corpuscular Volume 94.4 fL (80-100); Monocytes Absolute Auto 700 /uL (0-900); Monocytes Percent Auto 11.5 % (3-14); Neutrophils Absolute Auto 3700 /uL (1500-7000); Neutrophils Percent Auto 58.4 % (50-75); Platelet Count 282 X10^3/uL (150-400); Red Blood Cell Count 4.19 X10^6/uL (4.0-5.2); Red Cell Distribution Width 13.4 % (11.6-14.8); White Blood Cell Count 6.3 X10^3/uL (4.5-11.0)
[2022-02-19 10:20] LABS: UR Morphine/Opiate cutoff 300 Negative (Negative); Ur Creatinine Normal (Normal); Ur Specific Gravity Normal (Normal); Urine Amphetamines Positive (Negative); Urine Barbiturates Negative (Negative); Urine Benzodiazepines Negative (Negative); Urine Cocaine Negative (Negative); Urine MDMA Negative (Negative); Urine Methadone Negative (Negative); Urine Methamphetamines Negative (Negative); Urine Oxycodone Negative (Negative); Urine Phencyclidine Negative (Negative); Urine Tetrahydrocannabinol Negative (Negative); Urine Tricyclic Antidepressant Positive (Negative); Urine pH Normal (Normal)
[2022-02-19 11:00] LABS: Vitamin D 25 Hydroxy (D3) 41.9 ng/mL (30.0-100.0)
[2022-02-19 11:20] LABS: Alanine Aminotransferase 55 IU/L (<35); Albumin 4.1 g/dL (3.5-5.0); Albumin Globulin Ratio 1.5 (1.0-2.8); Alkaline Phosphatase 94 U/L (38-126); Aspartate Aminotransferase 50 IU/L (14-36); BUN Creatinine Ratio 23.7 (6-22); Bilirubin Total 0.2 mg/dL (0.2-1.3); Blood Urea Nitrogen 27 mg/dL (7-17); Calcium 9.5 mg/dL (8.4-10.2); Carbon Dioxide 26 mmol/L (22-32); Chloride 99 mmol/L (98-107); Estimated Glomerular Filt Rate 52 mL/min (>60); Globulin 2.7 g/dL (1.7-4.1); Glucose 101 mg/dL (80-110); HEMOLYSIS < 15 (0-50); Potassium 3.7 mmol/L (3.4-5.1); Sodium 135 mmol/L (137-145); Total Protein 6.8 g/dL (6.3-8.2)
== END ==
PROVIDERS: PCP Family Medicine; Referring Provider Family Medicine; Visit Provider Family Medicine
DX: F11.20 Opioid dependence, uncomplicated (principal); E55.9 Vitamin D deficiency, unspecified; Z02.89 Encounter for other administrative examinations; N18.2 Chronic kidney disease, stage 2 (mild)
CPT/HCPCS: 36415; 80053; 80305; 82306; 85025

== ENCOUNTER → 2022-02-22 11:48 | Outpatient (CLI) | payer MEDICARE, OTHER, SELFPAY | PROVIDERS: PCP Family Medicine; Referring Provider Family Medicine; Visit Provider Family Medicine | DX: M81.0 Age-related osteoporosis without current pathological fracture (principal); Z13.820 Encounter for screening for osteoporosis; Z78.0 Asymptomatic menopausal state; Z90.710 Acquired absence of both cervix and uterus | CPT/HCPCS: 77080 ==

== ENCOUNTER → 2022-04-13 08:15 | Outpatient (CLI) | payer MEDICARE, OTHER, SELFPAY | PROVIDERS: PCP Family Medicine; Visit Provider Physician Assistant | DX: N39.0 Urinary tract infection, site not specified (principal) | CPT/HCPCS: 87077; 87086; 87186 ==

== ENCOUNTER 2022-11-04 13:59 | Emergency (ER) | payer MEDICARE, OTHER, SELFPAY ==
[2022-11-04] VITALS (23 sets, daily range): BP systolic 113–237; BP diastolic 72–115; PULSE 70–96; RESP 17–23; TEMP 36.9; O2SAT 90–100; BMI 18.8
--- NOTE | 2022-11-04 14:07 | DI.CT.S_ITS ---
PROCEDURE: CT STROKE INDICATIONS: Slurred speech TECHNIQUE: Noncontrast 4.5 mm thick angled axial sections acquired from the foramen magnum to the vertex, with coronal reformats. For radiation dose reduction, the following was used: automated exposure control, adjustment of mA and/or kV according to patient size. COMPARISON: MR, MR HEAD/BRAIN WO/W CON, 09/12/2020, 9:14. CT, CT HEAD/BRAIN WO CON, 08/29/2020, 11:32. MR, MR STROKE, 04/14/2021, 11:15. FINDINGS: Image quality: Excellent. CSF spaces: Basal cisterns are patent. No extra-axial fluid collections. The ventricles are symmetric in size and shape. Brain: There is a 4.0 x 3.9 cm hyperdense mass in left central brain involving the basal ganglia, compatible with a hematoma, most likely secondary to acute hemorrhagic infarct. There is cerebral edema with partial effacement of the anterior horn of the left lateral ventricle. No significant midline shift. There is cerebral volume loss for age, with resultant ventricular and sulcal prominence. There are periventricular and deep white matter chronic small vessel ischemic changes. There is intracranial internal carotid artery atherosclerosis. Skull and face: Calvarium and visualized facial bones appear intact, without suspicious lesions. Sinuses: Visualized sinuses and mastoids are clear. IMPRESSION: 1. A 4.0 x 3.9 hyperdense mass in the left central brain involving the basal ganglia, compatible with a hematoma. It is most likely secondary to acute hemorrhagic infarct. There is mass effect with partial effacement of the anterior horn of the left lateral ventricle. No significant midline shift. The result was discussed with David Perez in ER prior to dictation. This study fulfills neurological imaging criteria for inclusion or exclusion of acute stroke therapies based on available published neurological guidelines. Dictated by: Marcelo Marie M.D. on 11/04/2022 at 14:14 Approved by: Marcelo Marie M.D. on 11/04/2022 at 14:41
--- NOTE | 2022-11-04 14:11 | ED.NEUROSD ---
HPI - Neuro Symptoms/Deficit General Chief Complaint: Neuro Symptoms/Deficit Stated Complaint: Stroke Sx Time Seen by Provider: 11/04/22 14:06 History of Present Illness HPI Narrative: Patient brought in by from home for altered mental status. Last well known uncertain. Patient has right facial droop and slurred speech and confusion. Patient has expressive aphasia. No limb weakness. Patient brought immediately to CT scan imaging. Spoke with . Last well-known possibly around 6:00 a.m. today. He returned around 1:00 a.m. today in the afternoon to find her in this condition. No known fall or injury no recent illness. No fever chills cough cold or congestion. states she does not have multiple sclerosis. She has been evaluated by providers here. Related Data Home Medications Medication Instructions Recorded Confirmed albuterol sulfate 90 mcg/actuation 1 inh inhalation QID PRN asthma 10/24/19 10/20/22 aerosol inhaler carisoprodol 350 mg tablet 350 mg PO BID 10/24/19 10/20/22 lorazepam 1 mg tablet 1 mg PO DAILY PRN Anxiety 10/24/19 10/20/22 ascorbate calcium (vitamin C) 500 500 mg PO DAILY 04/09/20 10/20/22 mg tablet cholecalciferol (vitamin D3) 10 10 mcg PO DAILY 04/09/20 10/20/22 mcg (400 unit) capsule microfibril. collagen hemostat 1 applic topical ONCE 04/09/20 10/20/22 turmeric 400 mg capsule mg PO 04/09/20 10/20/22 diltiazem HCl 240 mg 240 mg PO DAILY 04/14/20 10/20/22 capsule,extended release 24 hr, controlled fluticasone 250 mcg-salmeterol 50 1 inh inhalation BID 04/14/20 10/20/22 mcg/dose blistr powdr for inhalation (Advair Diskus) amitriptyline 10 mg tablet mg PO 10/20/22 10/20/22 dextroamphetamine-amphetamine 10 1 tab PO BID 10/20/22 10/20/22 mg tablet diltiazem HCl 120 mg mg PO 10/20/22 10/20/22 capsule,extended release 24 hr sertraline 50 mg tablet 50 mg PO DAILY 10/20/22 10/20/22 tramadol 50 mg tablet 50 mg PO Q4H PRN 10/20/22 10/20/22 Previous Rx's Medication Instructions Recorded omeprazole 20 mg capsule,delayed 20 mg PO DAILY #60 caps 04/17/21 release Allergies Allergy/AdvReac Type Severity Reaction Status Date / Time No Known Drug Allergies Allergy Verified 10/31/22 12:50 Review of Systems Review of Systems Narrative: GENERAL: negative chills, fatigue, malaise, fever, sweats. HEENT: negative sinus pain, ear pain, sore throat RESPIRATORY: negative dyspnea, cough CARDIOVASCULAR: negative chest pain, palpitations GASTROINTESTINAL: negative nausea, vomiting, abdominal pain : negative dysuria, frequency, hematuria MUSCULOSKELETAL: negative muscle or bony pain SKIN: negative rash, skin lesions NEUROLOGIC: negative weakness, numbness, positive slurred speech positive facial droop positive confusion ROS Unobtainable: All systems reviewed & are unremarkable except as noted in HPI and below Patient History Medical History Asthma Cat allergies History of Kzyfk-Qhhqqijup-Copwu (WPW) syndrome (~1994) HTN (hypertension) Multiple sclerosis Seasonal allergies Family History Mother Hypertension Social History marital status: household members: spouse occupational status: previously employed Smoking Status: Former smoker alcohol intake: current substance use type: does not use Smoking Status: Former smoker alcohol intake frequency: 0-2 drinks per day Substance Use Type: does not use Exam Narrative Exam Narrative: GENERAL: in no distress, not toxic not dyspneic HEAD: Normocephalic. EYES: Pupils equal round ENT: Mucous membranes moist. NECK: Trachea midline. CARDIOVASCULAR: Regular rate and rhythm RESPIRATORY: Clear to auscultation. Breath sounds equal bilaterally. No wheezes, rales, or rhonchi. GASTROINTESTINAL: Abdomen soft, non-tender EXTREMITIES: No gross deformities. BACK: No flank tenderness. NEURO: Patient is awake alert to name and date of but has dysarthria and slurred speech. Does have expressive aphasia. Lift each arm in air without drift. List each leg and here without drift. Strong equal manager lan. Follows instructions without difficulty. SKIN: Warm and dry PSYCH: Not anxious, is cooperative Initial Vital Signs Initial Vital Signs: Vital Signs Pulse Rate 70 08/31/23 14:15 Blood Pressure 113/74 11/04/22 14:15 Pulse Oximetry 93 11/04/22 14:15 Oxygen Delivery Method Room Air 11/04/22 14:15 Scores NIH Stroke Scale Level of Conciousness: Alert, keenly responsive Ask month/age: Answers both questions correctly. Open/close eyes, close hand: Performs both tasks correctly Best gaze horizontal: Normal Visual urrutia: No visual loss Facial palsy: Partial paralysis, total or near total paralysis of lower face Left arm drift: No drift for full 10 sec Right arm drift: No drift for full 10 sec Left leg drift: No drift for full 5 sec Right leg drift: No drift for full 5 sec Limb ataxia: Absent Sensory on face/arms/legs: Normal, no sensory loss Best language: Severe aphasia, not much is understood, fragmented Dysarthria: Severe, unintelligible Extinction or inattention: No abnormality Total NIH Stroke scale score: 6 Course Orders Ordered: Discontinued Medications Nicardipine HCl 25 mg/ Sodium (Chloride) 250 mls @ 50 mls/hr IV TITRATE BRAD; Protocol Last Titration: 11/04/22 16:10 Dose: 0 mg/hr, 0 mls/hr Documented By: DKLuzmaria Titration: 11/04/22 16:01 Dose: 3 mg/hr, 30 mls/hr Documented By: Titration: 11/04/22 15:51 Dose: 2.5 mg/hr, 25 mls/hr Documented By: Titration: 11/04/22 15:35 Dose: 0 mg/hr, 0 mls/hr Documented By: Titration: 11/04/22 15:26 Dose: 2.5 mg/hr, 25 mls/hr Documented By: Titration: 11/04/22 15:21 Dose: 5 mg/hr, 50 mls/hr Documented By: Titration: 11/04/22 14:57 Dose: 7.5 mg/hr, 75 mls/hr Documented By: Admin: 11/04/22 14:45 Dose: 5 mg/hr, 50 mls/hr Documented By: NABIL Labetalol HCl (Labetalol 20 Mg/4 Ml Syringe) 10 mg IV NOW ONE Stop: 11/04/22 14:18 Last Admin: 11/04/22 14:38 Dose: 10 mg Documented By: DKLuzmaria Vital Signs Vital signs: Vital Signs - 8 hr 11/04/22 14:38 11/04/22 14:46 Temperature 98.5 F Pulse Rate 96 H 76 Respiratory Rate 20 Blood Pressure 237/110 H 198/95 H Pulse Oximetry 100 Oxygen Delivery Method Room Air MDM - Neuro Symptoms/Deficit Lab Data 11/04/22 14:09 11/04/22 14:09 Labs: Lab Results 11/04/22 11/04/22 11/04/22 Range/Units 14:09 14:09 14:09 WBC 8.2 (4.5-11.0) X10^3/uL RBC 4.08 (4.0-5.2) X10^6/uL Hgb 13.4 (12.0-16.0) g/dL Hct 38.7 (36-46) % MCV 94.9 (80-100) fL MCH 32.8 (26-34) PG MCHC 34.5 (30-36) % RDW 13.5 (11.6-14.8) % Plt Count 258 (150-400) X10^3/uL Neut % (Auto) 74.2 (50-75) % Lymph % (Auto) 18.5 L (25-40) % [place] % (Auto) 5.6 (3-14) % Eos % (Auto) 1.3 L (2-4) % Baso % (Auto) 0.4 (0-2) % Neut # (Auto) 6100 (9136-6738) /uL Lymph # (Auto) 1500 (1690-4433) /uL [place] # (Auto) 500 (0-900) /uL Eos # (Auto) 100 (0-450) /uL Baso # (Auto) 0 (0-100) /uL PT 12.6 (10.1-12.7) SECONDS INR 1.1 (0.9-1.3) APTT 29 (26-36) SECONDS Sodium 136 L (137-145) mmol/L Potassium 4.2 (3.4-5.1) mmol/L Chloride 102 (98-107) mmol/L Carbon Dioxide 25 (22-32) mmol/L BUN 21 H (7-17) mg/dL Creatinine 1.02 (0.52-1.04) mg/dL Estimated GFR 60 (>60) mL/min BUN/Creatinine Ratio 20.6 (6-22) Glucose 107 (80-110) mg/dL Calcium 9.1 (8.4-10.2) mg/dL Total Bilirubin 0.5 (0.2-1.3) mg/dL AST 36 (14-36) IU/L ALT 26 (<35) IU/L Alkaline Phosphatase 82 (38-126) U/L Total Creatine Kinase 102 (30-135) U/L Troponin I < 0.012 (0.01-0.034) ng/mL Total Protein 7.5 (6.3-8.2) g/dL Albumin 4.4 (3.5-5.0) g/dL Globulin 3.1 (1.7-4.1) g/dL Albumin/Globulin Ratio 1.4 (1.0-2.8) SARS-CoV-2 (PCR) (Negative) 11/04/22 Range/Units 15:11 WBC (4.5-11.0) X10^3/uL RBC (4.0-5.2) X10^6/uL Hgb (12.0-16.0) g/dL Hct (36-46) % MCV (80-100) fL MCH (26-34) PG MCHC (30-36) % RDW (11.6-14.8) % Plt Count (150-400) X10^3/uL Neut % (Auto) (50-75) % Lymph % (Auto) (25-40) % [place] % (Auto) (3-14) % Eos % (Auto) (2-4) % Baso % (Auto) (0-2) % Neut # (Auto) (0570-4439) /uL Lymph # (Auto) (4357-9718) /uL [place] # (Auto) (0-900) /uL Eos # (Auto) (0-450) /uL Baso # (Auto) (0-100) /uL PT (10.1-12.7) SECONDS INR (0.9-1.3) APTT (26-36) SECONDS Sodium (137-145) mmol/L Potassium (3.4-5.1) mmol/L Chloride (98-107) mmol/L Carbon Dioxide (22-32) mmol/L BUN (7-17) mg/dL Creatinine (0.52-1.04) mg/dL Estimated GFR (>60) mL/min BUN/Creatinine Ratio (6-22) Glucose (80-110) mg/dL Calcium (8.4-10.2) mg/dL Total Bilirubin (0.2-1.3) mg/dL AST (14-36) IU/L ALT (<35) IU/L Alkaline Phosphatase (38-126) U/L Total Creatine Kinase (30-135) U/L Troponin I (0.01-0.034) ng/mL Total Protein (6.3-8.2) g/dL Albumin (3.5-5.0) g/dL Globulin (1.7-4.1) g/dL Albumin/Globulin Ratio (1.0-2.8) SARS-CoV-2 (PCR) Negative (Negative) Imaging Data CT scan - head: Radiologist's Impression: [address] [address] [address] Scan Report Signed Patient: Brooklyn Watts MR#: [id number] : 1955 Acct:[id number] Age/Sex: 67 / F Date of Service: 11/04/22 Loc: ED Accession Number: [id number] ?? Procedure: CT Stroke Ordering Provider: Samy Sandra MD PROCEDURE:? CT STROKE ? INDICATIONS:? Slurred speech ? TECHNIQUE:? Noncontrast 4.5 mm thick angled axial sections acquired from the foramen magnum to the vertex, with coronal reformats.? For radiation dose reduction, the following was used:? automated exposure control, adjustment of mA and/or kV according to patient size.? ? COMPARISON:? MR, MR HEAD/BRAIN WO/W CON, 09/12/2020, 9:14.? CT, CT HEAD/BRAIN WO CON, 08/29/2020, 11:32.? MR, MR STROKE, 04/14/2021, 11:15. ? FINDINGS:? Image quality:? Excellent.? ? CSF spaces:? Basal cisterns are patent.? No extra-axial fluid collections.? The ventricles are symmetric in size and shape.? ? Brain:? There is a 4.0 x 3.9 cm hyperdense mass in left central brain involving the basal ganglia, compatible with a hematoma, most likely secondary to acute hemorrhagic infarct.? There is cerebral edema with partial effacement of the anterior horn of the left lateral ventricle.? No significant midline shift.? There is cerebral volume loss for age, with resultant ventricular and sulcal prominence.? There are periventricular and deep white matter chronic small vessel ischemic changes.? There is intracranial internal carotid artery atherosclerosis.? ? Skull and face:? Calvarium and visualized facial bones appear intact, without suspicious lesions.? ? Sinuses:? Visualized sinuses and mastoids are clear.? ? IMPRESSION:? ? 1. A 4.0 x 3.9 hyperdense mass in the left central brain involving the basal ganglia, compatible with a hematoma.? It is most likely secondary to acute hemorrhagic infarct.? There is mass effect with partial effacement of the anterior horn of the left lateral ventricle.? No significant midline shift. ? The result was discussed with David Perez in ER prior to dictation. ? This study fulfills neurological imaging criteria for inclusion or exclusion of acute stroke therapies based on available published neurological guidelines.? ? ? Dictated by: Marcelo Marie M.D. on 11/04/2022 at 14:14 ? ? Approved by: Marcelo Marie M.D. on 11/04/2022 at 14:41 ? [facility] Narrative Medical decision making narrative: Patient brought in by from home for altered mental status. Last well known uncertain. Patient has right facial droop and slurred speech and confusion. Patient has expressive aphasia. No limb weakness. Patient brought immediately to CT scan imaging. Spoke with . Last well-known possibly around 6:00 a.m. today. He returned around 1:00 a.m. today in the afternoon to find her in this condition. No known fall or injury no recent illness. No fever chills cough cold or congestion. states she does not have multiple sclerosis. She has been evaluated by providers here. After history and exam CT head EKG CBC CMP troponin stroke/neurology consult [facility] CC: Altered mental status Complicating co-morbidities: Hypertension Data collected from: Medical records reviewed: No recent visit for this complaint Differential considered: Includes but not limited to stroke tumor substance abuse Coy's palsy head bleed Exam documented above, pertinent findings include: Slurred speech facial droop Lab Test results independently reviewed as above. Pertinent findings: WBC 8.2 hemoglobin 13.4 sodium 136 potassium 4.2 troponin less than 0.012 Independently reviewed EKG normal sinus rhythm rate [address] elevation or depression Imaging studies independently reviewed: Large head bleed left side Consultations: 2:16 p.m.. Spoke with [facility] stroke team. Dr. Thurston, she recommends lowering blood pressure with labetalol 10 mg IV, start nicardipine drip. Transfer patient to [facility] Emergency Department. Accepting neurologist will be Dr. Gonzalez, neurology team, they will speak with Dr. Schulz, ER for acceptance. No seizure medication indicated this time Treatments: Labetalol nicardipine Re-evaluations: Updated patient and results. They do understand need to be flown to [facility] emergently Discussion: Appropriate for transfer. Patient will need neurosurgical services and Neurology. Blood pressure control started. Is effective. Nicardipine and labetalol started. Airway intact. No intubation required. Diagnosis: Hemorrhagic stroke Stroke Core Measures Contraindications for TPA in CVA: Presentation c/w SA Bleed Critical Care Time Critical Care Time Attestation: Critical Care Time 35 minutes: Critical care time is separate from other billable procedures. This critical care time includes consultation with family and other consulting doctors, review of records, and interpretation of data from labs, EKGs, imaging, etc. Discharge Plan Departure Patient Disposition: [facility] Clinical Impression: Cerebrovascular accident, hemorrhagic Prescriptions: No Action sertraline 50 mg tablet 50 mg PO DAILY tramadol 50 mg tablet 50 mg PO Q4H PRN dextroamphetamine-amphetamine 10 mg tablet 1 tab PO BID amitriptyline 10 mg tablet PO diltiazem HCl 120 mg capsule,extended release 24hr PO omeprazole 20 mg capsule,delayed release(DR/EC) 20 mg PO DAILY Qty: 60 6RF ascorbate calcium (vitamin C) 500 mg tablet 500 mg PO DAILY cholecalciferol (vitamin D3) 10 mcg (400 unit) capsule 10 mcg PO DAILY turmeric 400 mg capsule PO microfibril. collagen hemostat Powder 1 applic topical ONCE albuterol sulfate 90 mcg/actuation Hfa Aerosol Inhaler 1 inh INHALATION QID PRN (Reason: asthma) carisoprodol 350 mg Tablet 350 mg PO BID lorazepam 1 mg Tablet 1 mg PO DAILY PRN (Reason: Anxiety) fluticasone propion-salmeterol [Advair Diskus] 250-50 mcg/dose Blister With Device 1 inh INHALATION BID diltiazem HCl 240 mg Capsule,Ext.Rel 24h Degradable 240 mg PO DAILY Referrals: Maverick Ribeiro MD [Primary Care Provider] -
[2022-11-04 14:27] LABS: Add Manual Diff / Slide Review NO; Basophils Absolute Auto 0 /uL (0-100); Basophils Percent Auto 0.4 % (0-2); Eosinophils Absolute Auto 100 /uL (0-450); Eosinophils Percent Auto 1.3 % (2-4); Hematocrit 38.7 % (36-46); Hemoglobin 13.4 g/dL (12.0-16.0); Lymphocytes Absolute Auto 1500 /uL (1100-4500); Lymphocytes Percent Auto 18.5 % (25-40); Mean Corpuscular HGB Conc 34.5 % (30-36); Mean Corpuscular Hemoglobin 32.8 PG (26-34); Mean Corpuscular Volume 94.9 fL (80-100); Monocytes Absolute Auto 500 /uL (0-900); Monocytes Percent Auto 5.6 % (3-14); Neutrophils Absolute Auto 6100 /uL (1500-7000); Neutrophils Percent Auto 74.2 % (50-75); Platelet Count 258 X10^3/uL (150-400); Red Blood Cell Count 4.08 X10^6/uL (4.0-5.2); Red Cell Distribution Width 13.5 % (11.6-14.8); White Blood Cell Count 8.2 X10^3/uL (4.5-11.0)
[2022-11-04] MEDS: LABETALOL 20 MG/4 ML SYRINGE 10 MG IV (14:38)
[2022-11-04 14:39] LABS: INR 1.1 (0.9-1.3); Prothrombin Time 12.6 SECONDS (10.1-12.7)
[2022-11-04 14:41] LABS: PTT Partial Thromboplastin Tim 29 SECONDS (26-36)
[2022-11-04] MEDS: NICARDIPINE 25 MG in SODIUM CHLORIDE 0.9% 240 ML 50 MG IV (14:45)
[2022-11-04 14:46] LABS: Alanine Aminotransferase 26 IU/L (<35); Albumin 4.4 g/dL (3.5-5.0); Albumin Globulin Ratio 1.4 (1.0-2.8); Alkaline Phosphatase 82 U/L (38-126); Aspartate Aminotransferase 36 IU/L (14-36); BUN Creatinine Ratio 20.6 (6-22); Bilirubin Total 0.5 mg/dL (0.2-1.3); Blood Urea Nitrogen 21 mg/dL (7-17); Calcium 9.1 mg/dL (8.4-10.2); Carbon Dioxide 25 mmol/L (22-32); Chloride 102 mmol/L (98-107); Creatine Kinase 102 U/L (30-135); Estimated Glomerular Filt Rate 60 mL/min (>60); Globulin 3.1 g/dL (1.7-4.1); Glucose 107 mg/dL (80-110); HEMOLYSIS < 15 (0-50); Potassium 4.2 mmol/L (3.4-5.1); Sodium 136 mmol/L (137-145); Total Protein 7.5 g/dL (6.3-8.2)
[2022-11-04 14:58] LABS: Troponin I < 0.012 ng/mL (0.01-0.034)
--- NOTE | 2022-11-04 15:27 | PC.NURSE ---
Pt very restless in the bed, denies pain.
[2022-11-04 15:37] LABS: COVID19 -Nasal RAPID Negative (Negative)
--- NOTE | 2022-11-04 16:12 | PC.NURSE ---
Pt transferred with bethany nicardipine gtt went with the patient.
--- NOTE | 2022-11-04 16:17 | PC.NURSE ---
[employer] to room by [id number], assuming care of pt for tranfer.
== END 2022-11-04 16:26 | disposition short-term general hospital (02) ==
PROVIDERS: Emergency Provider Emergency Medicine; PCP Family Medicine
DX: I61.9 Nontraumatic intracerebral hemorrhage, unspecified (principal); R29.706 NIHSS score 6; Z20.822 Contact with and (suspected) exposure to COVID-19
CPT/HCPCS: 36415; 70450; 80053; 82550; 84484; 85025; 85610; 85730; 87635; 93005; 96365; 96375; 99284; 99291; 99292; C9803

== ENCOUNTER 2022-12-14 07:52 | Observation (INO) | payer MEDICARE, OTHER, SELFPAY ==
[2022-12-14] VITALS (14 sets, daily range): BP systolic 128–185; BP diastolic 80–98; PULSE 60–89; RESP 16–24; TEMP 36.2–36.7; O2SAT 97–100; BMI 20.6
--- NOTE | 2022-12-14 08:13 | DI.RAD.S_ITS ---
PROCEDURE: XR CHEST 1V INDICATIONS: Possible stroke TECHNIQUE: One view of the chest was acquired. COMPARISON: [facility], , CHEST 1 VIEW, 07/24/2015, 22:26. FINDINGS: Surgical changes and devices: None. Lungs and pleura: No dense consolidation. No pleural effusions. Mediastinum: Normal heart size Bones and chest wall: Degenerative changes. IMPRESSION: Single-view chest. No acute radiographic abnormality. Dictated by: Mark Hughes M.D. on 12/14/2022 at 8:43 Approved by: Mark Hughes M.D. on 12/14/2022 at 8:43
--- NOTE | 2022-12-14 08:13 | DI.CT.S_ITS ---
PROCEDURE: CT STROKE INDICATIONS: Positive BE-FAST, Stroke symptoms TECHNIQUE: Noncontrast 4.5 mm thick angled axial sections acquired from the foramen magnum to the vertex, with coronal reformats. For radiation dose reduction, the following was used: automated exposure control, adjustment of mA and/or kV according to patient size. COMPARISON: [facility], CT, CT STROKE, 11/04/2022, 14:13. FINDINGS: Image quality: Good CSF spaces: Basal cisterns are patent. Lateral ventricles are symmetric. Volume: Vascular calcifications. Periventricular white matter disease is commonly seen with chronic microangiopathy. Volume loss is present. These findings are [id number] Brain: Left basal ganglia hemorrhage has decreased in density, with persistent surrounding edema and developing encephalomalacia. Craniofacial structures: No displaced fracture. Sinuses are clear. Orbits are intact. IMPRESSION: Decreased density of the left basal ganglia hemorrhage compared to October. No herniation. There is surrounding hypoattenuation representing persistent vasogenic edema versus new cytotoxic edema. Consider MRI. Called to the ED. Dictated by: Mark Hughes M.D. on 12/14/2022 at 8:32 Approved by: Mark Hughes M.D. on 12/14/2022 at 8:36
--- NOTE | 2022-12-14 08:20 | ED_ITS ---
HPI - Dizziness General Chief Complaint: Dizziness Stated Complaint: dizzy/HX of Stroke Time Seen by Provider: 12/14/22 08:11 Source: patient and family Mode of arrival: Ambulatory History of Present Illness HPI Narrative: Last well known 9:00 p.m. last night. Patient awoke a few times through the night feeling dizzy going to the bathroom. Awoke at 7:00 a.m. this morning and dizziness worsened. Brought in by from home. Patient seen here November 04, 2022 for hemorrhagic stroke. Was transferred to [facility]. Patient has improved neurologically with a right-sided deficits and slurred speech since the stroke according to . Patient is awake alert oriented x4. Denies the room spinning or her spinning. Just feels lightheaded. Blood pressure noted, she is not taken her blood pressure medication this morning. Fast exam is negative Related Data Home Medications Medication Instructions Recorded Confirmed albuterol sulfate 90 mcg/actuation 1 inh inhalation QID PRN asthma 10/24/19 10/20/22 aerosol inhaler carisoprodol 350 mg tablet 350 mg PO BID 10/24/19 10/20/22 lorazepam 1 mg tablet 1 mg PO DAILY PRN Anxiety 10/24/19 10/20/22 ascorbate calcium (vitamin C) 500 500 mg PO DAILY 04/09/20 10/20/22 mg tablet cholecalciferol (vitamin D3) 10 10 mcg PO DAILY 04/09/20 10/20/22 mcg (400 unit) capsule microfibril. collagen hemostat 1 applic topical ONCE 04/09/20 10/20/22 turmeric 400 mg capsule mg PO 04/09/20 10/20/22 diltiazem HCl 240 mg 240 mg PO DAILY 04/14/20 10/20/22 capsule,extended release 24 hr, controlled fluticasone 250 mcg-salmeterol 50 1 inh inhalation BID 04/14/20 10/20/22 mcg/dose blistr powdr for inhalation (Advair Diskus) amitriptyline 10 mg tablet mg PO 10/20/22 10/20/22 dextroamphetamine-amphetamine 10 1 tab PO BID 10/20/22 10/20/22 mg tablet diltiazem HCl 120 mg mg PO 10/20/22 10/20/22 capsule,extended release 24 hr sertraline 50 mg tablet 50 mg PO DAILY 10/20/22 10/20/22 tramadol 50 mg tablet 50 mg PO Q4H PRN 10/20/22 10/20/22 Previous Rx's Medication Instructions Recorded omeprazole 20 mg capsule,delayed 20 mg PO DAILY #60 caps 04/17/21 release Allergies Allergy/AdvReac Type Severity Reaction Status Date / Time No Known Drug Allergies Allergy Verified 12/14/22 08:03 Review of Systems Review of Systems Narrative: GENERAL: negative chills, fatigue, malaise, fever, sweats. HEENT: negative sinus pain, ear pain, sore throat RESPIRATORY: negative dyspnea, cough CARDIOVASCULAR: negative chest pain, palpitations GASTROINTESTINAL: negative nausea, vomiting, abdominal pain : negative dysuria, frequency, hematuria MUSCULOSKELETAL: negative muscle or bony pain SKIN: negative rash, skin lesions NEUROLOGIC: negative weakness, numbness, positive dizziness, negative slurred speech facial droop, negative new limb weakness or numbness or tingling ROS Unobtainable: All systems reviewed & are unremarkable except as noted in HPI and below Patient History Medical History History of Gvhfa-Kyqcwhwsz-Jczzc (WPW) syndrome (~1994) Multiple sclerosis HTN (hypertension) Asthma Cat allergies Seasonal allergies Family History Mother Hypertension Social History marital status: household members: spouse occupational status: previously employed Smoking Status: Former smoker alcohol intake: current substance use type: does not use Smoking Status: Former smoker alcohol intake frequency: 0-2 drinks per day Substance Use Type: does not use Exam Narrative Exam Narrative: GENERAL: in no distress, not toxic not dyspneic HEAD: Normocephalic. EYES: Pupils equal round ENT: Mucous membranes moist. NECK: Trachea midline. CARDIOVASCULAR: Regular rate and rhythm RESPIRATORY: Clear to auscultation. Breath sounds equal bilaterally. No wheezes, rales, or rhonchi. GASTROINTESTINAL: Abdomen soft, non-tender EXTREMITIES: No gross deformities. BACK: No flank tenderness. NEURO: AOx4. Clear speech no facial droop light touch intact bilateral face hands and feet. 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 Able to lift each leg independently. Negative pronator drift. Able to cross each arm cross midline. Movement of eyes does not trigger dizziness. No nystagmus SKIN: Warm and dry PSYCH: Not anxious, is cooperative Initial Vital Signs Initial Vital Signs: Vital Signs Temperature 97.1 F L 12/14/22 07:57 Pulse Rate 65 12/14/22 07:57 Respiratory Rate 24 12/14/22 07:57 Blood Pressure 177/98 H 12/14/22 07:57 Pulse Oximetry 100 12/14/22 07:57 Oxygen Delivery Method Room Air 12/14/22 07:57 Scores NIH Stroke Scale Level of Conciousness: Alert, keenly responsive Ask month/age: Answers both questions correctly. Open/close eyes, close hand: Performs both tasks correctly Best gaze horizontal: Normal Visual urrutia: No visual loss Facial palsy: Normal symetrical movement Left arm drift: No drift for full 10 sec Right arm drift: No drift for full 10 sec Left leg drift: No drift for full 5 sec Right leg drift: No drift for full 5 sec Limb ataxia: Absent Sensory on face/arms/legs: Normal, no sensory loss Best language: No aphasia, normal Dysarthria: Normal Extinction or inattention: No abnormality Total NIH Stroke scale score: 0 Course Orders Ordered: ED Orders 12/14/22 08:13 CT Stroke Stat XR chest 1V Stat Urine Drug Screen, Rapid Stat EKG-12 Lead Stat 12/14/22 08:17 Complete Blood Count AUTO DIFF Stat Comprehensive Metabolic Panel Stat Magnesium Stat PTT Partial Thromboplastin Duc Stat Prothrombin Time INR Stat Troponin & CK Cardiac Panel Stat 12/14/22 08:19 CT angio head and neck Stat Acetaminophen (Acetaminophen 325 Mg Tablet) 650 mg PO Q6H PRN PRN Reason: Fever/Mild Pain (1-3) Albuterol/Ipratropium (Albuterol/Ipratropium 3 Ml Ampul) 3 ml INH [id number] PRN PRN Reason: shortness of breath/wheezing Amitriptyline HCl (Amitriptyline 10 Mg Tablet) 10 mg PO BEDTIME BRAD Atorvastatin Calcium (Atorvastatin 20 Mg Tablet) 80 mg PO BEDTIME BRAD Diltiazem HCl (Diltiazem Cd 120 Mg Cap) 240 mg PO DAILY BRAD Sodium Chloride (Normal Saline 0.9%) 1,000 mls @ 100 mls/hr IV CONT BRAD Stop: 12/14/22 21:44 Labetalol HCl (Labetalol 20 Mg/4 Ml Syringe) 10 mg IV Q5MIN PRN PRN Reason: SBP >160 or DBP >110 Lorazepam (Lorazepam 1 Mg Tablet) 1 mg PO DAILY PRN PRN Reason: Anxiety Melatonin (Melatonin 3 Mg Tablet) 6 mg PO BEDTIME PRN PRN Reason: Insomnia Naloxone HCl (Naloxone 0.4 Mg/Ml Vial) 0.2 mg IV Q2MIN PRN PRN Reason: Opiate Reversal Ondansetron HCl (Ondansetron 4 Mg/2 Ml Inj) 4 mg IV NOW PRN PRN Reason: Nausea And Vomiting Ondansetron HCl (Ondansetron 4 Mg Odt) 4 mg SL NOW PRN PRN Reason: Nausea And Vomiting Pantoprazole Sodium (Pantoprazole Dr 20 Mg Tablet) 20 mg PO 0600 BRAD Polyethylene Glycol (Polyethylene Glycol 3350 17 Gm Powd.Pack) 17 gm PO DAILY PRN PRN Reason: Constipation Sennosides (Sennosides 8.6 Mg Tablet) 8.6 mg PO BID PRN PRN Reason: Constipation Sertraline HCl (Sertraline 50 Mg Tablet) 50 mg PO DAILY BRAD Tramadol HCl (Tramadol 50 Mg Tablet) 50 mg PO TID PRN PRN Reason: Pain, Moderate (4-6) Discontinued Medications Diltiazem HCl (Diltiazem Cd 180 Mg Cap) 180 mg PO NOW ONE Stop: 12/14/22 09:05 Last Admin: 12/14/22 09:26 Dose: 180 mg Documented By: NABIL Hydralazine HCl (Hydralazine 20 Mg/Ml Vial) 5 mg IV NOW ONE Stop: 12/14/22 08:25 Last Admin: 12/14/22 08:35 Dose: 5 mg Documented By: NABIL Sodium Chloride (Normal Saline 0.9%) 500 mls @ 1,000 mls/hr IV BOLUS ONE Stop: 12/14/22 08:49 Last Infusion: 12/14/22 09:09 Dose: Infused Documented By: Admin: 12/14/22 08:40 Dose: 1,000 mls/hr Documented By: NABIL Vital Signs Vital signs: Vital Signs - 8 hr 12/14/22 07:57 12/14/22 08:33 12/14/22 08:33 Temperature 97.1 F L Pulse Rate 65 62 Respiratory Rate 24 21 Blood Pressure 177/98 H 173/91 H Pulse Oximetry 100 99 Oxygen Delivery Method Room Air 12/14/22 08:35 12/14/22 09:00 12/14/22 09:01 Temperature Pulse Rate 60 65 Respiratory Rate 23 Blood Pressure 172/91 H 181/94 H Pulse Oximetry 100 Oxygen Delivery Method 12/14/22 09:01 12/14/22 09:09 Temperature Pulse Rate 65 63 Respiratory Rate Blood Pressure 181/94 H Pulse Oximetry 100 Oxygen Delivery Method MDM - Dizziness Lab Data 12/14/22 08:17 12/14/22 08:17 Labs: Lab Results 12/14/22 Range/Units 08:17 WBC 5.6 (4.5-11.0) X10^3/uL RBC 3.91 L (4.0-5.2) X10^6/uL Hgb 12.5 (12.0-16.0) g/dL Hct 36.1 (36-46) % MCV 92.3 (80-100) fL MCH 31.9 (26-34) PG MCHC 34.5 (30-36) % RDW 13.1 (11.6-14.8) % Plt Count 287 (150-400) X10^3/uL Neut % (Auto) 49.2 L (50-75) % Lymph % (Auto) 38.1 (25-40) % [place] % (Auto) 8.5 (3-14) % Eos % (Auto) 3.0 (2-4) % Baso % (Auto) 1.2 (0-2) % Neut # (Auto) 2700 (6207-8920) /uL Lymph # (Auto) 2100 (0603-4775) /uL [place] # (Auto) 500 (0-900) /uL Eos # (Auto) 200 (0-450) /uL Baso # (Auto) 100 (0-100) /uL PT 13.6 H (10.1-12.7) SECONDS INR 1.2 (0.9-1.3) APTT 32 (26-36) SECONDS Sodium 138 (137-145) mmol/L Potassium 3.5 (3.4-5.1) mmol/L Chloride 103 (98-107) mmol/L Carbon Dioxide 28 (22-32) mmol/L BUN 35 H (7-17) mg/dL Creatinine 1.17 H (0.52-1.04) mg/dL Estimated GFR 51 L (>60) mL/min BUN/Creatinine Ratio 29.9 H (6-22) Glucose 101 (80-110) mg/dL Hemoglobin A1c 5.8 (4.0-6.0) % Calcium 9.6 (8.4-10.2) mg/dL Magnesium 1.9 (1.6-2.3) mg/dL Total Bilirubin 0.5 (0.2-1.3) mg/dL AST 20 (14-36) IU/L ALT 17 (<35) IU/L Alkaline Phosphatase 60 (38-126) U/L Total Creatine Kinase 25 L (30-135) U/L Troponin I < 0.012 (0.01-0.034) ng/mL Total Protein 7.4 (6.3-8.2) g/dL Albumin 4.3 (3.5-5.0) g/dL Globulin 3.1 (1.7-4.1) g/dL Albumin/Globulin Ratio 1.4 (1.0-2.8) Triglycerides 89 (35-150) mg/dL Cholesterol 241 H (140-199) mg/dL LDL Cholesterol, Calc 161 H (<100) mg/dL HDL Cholesterol 62 H (40-60) mg/dL TSH 1.36 (0.47-4.68) uIU/mL Point of Care Testing Glucose POC [address] scan - head: Radiologist's Impression: [address] [address] [address] Scan Report Signed Patient: Brooklyn Watts MR#: [id number] : 1955 Acct:[id number] Age/Sex: 67 / F Date of Service: 12/14/22 Loc: ED Accession Number: [id number] Procedure: CT Stroke Ordering Provider: Samy Sandra MD PROCEDURE: CT STROKE INDICATIONS: Positive BE-FAST, Stroke symptoms TECHNIQUE: Noncontrast 4.5 mm thick angled axial sections acquired from the foramen magnum to the vertex, with coronal reformats. For radiation dose reduction, the following was used: automated exposure control, adjustment of mA and/or kV according to patient size. COMPARISON: [facility], CT, CT STROKE, 11/04/2022, 14:13. FINDINGS: Image quality: Good CSF spaces: Basal cisterns are patent. Lateral ventricles are symmetric. Volume: Vascular calcifications. Periventricular white matter disease is commonly seen with chronic microangiopathy. Volume loss is present. These findings are [id number] Brain: Left basal ganglia hemorrhage has decreased in density, with persistent surrounding edema and developing encephalomalacia. Craniofacial structures: No displaced fracture. Sinuses are clear. Orbits are intact. IMPRESSION: Decreased density of the left basal ganglia hemorrhage compared to October. No herniation. There is surrounding hypoattenuation representing persistent vasogenic edema versus new cytotoxic edema. Consider MRI. Called to the ED. Dictated by: Mark Hughes M.D. on 12/14/2022 at 8:32 Approved by: Mark Hugehs M.D. on 12/14/2022 at 8:36 CTA - brain/neck: Radiologist's Impression: [place] [address] CT Scan Report Signed Patient: Brooklyn Watts MR#: [id number] : 1955 Acct:[id number] Age/Sex: 67 / F Date of Service: 12/14/22 Loc: ED Accession Number: [id number] Procedure: CT angio head and neck Ordering Provider: Samy Sandra MD PROCEDURE: CT ANGIO HEAD AND NECK INDICATIONS: Dizzy/history of stroke TECHNIQUE: After the administration of intravenous contrast, 1 mm thick sections acquired from the aortic arch through the [place]. 3-dimensional rqfamav-duaqxevrz-mlrbxnxcmv (MIP) and/or volume rendering reformats were acquired of the central intracranial vasculature and neck separately. For radiation dose reduction, the following was used: automated exposure control, adjustment of mA and/or kV according to patient size. COMPARISON: [facility], , MR STROKE, 04/14/2021, 11:15. FINDINGS: Image quality: diagnostic HEAD ANGIOGRAPHY Anterior circulation: ICAs: Normal and symmetric ACAs: Normal and symmetric MCAs: Normal and symmetric AComm: No aneurysm Venous sinuses: patent Posterior circulation: Dominance: Equal Vertebral arteries: No stenosis or occlusion. No aneurysm. Basilar artery: Unremarkable PComms: No aneurysm food concession manager: Unremarkable NECK ANGIOGRAPHY Aortic arch and subclavian arteries: Normal flow, no aneurysm. CCAs: No stenosis, occlusion, or aneurysm. ICA origins (by NASCET criteria): Mild calcifications at the left ICA origin. No significant narrowing. ICAs: No stenosis, occlusion or aneurysm. ECAs: Origins are patent. Vertebral arteries: There are areas of vertebral artery kinking within the cervical segments. Artifactual hypoattenuation is seen at the level of the mandible due to dental artifact. Soft tissues: No significant mass, aneurysm, or lymphadenopathy Lung apices: Emphysematous changes Bones: Degenerative changes. IMPRESSION: No high-grade stenosis or large vessel occlusion. Consider MRI to further evaluate in the setting of stroke concern. Previous area of hemorrhage described on noncontrast CT. Any quantitative measurements of stenosis were performed using NASCET criteria. Dictated by: Mark Hughes M.D. on 12/14/2022 at 8:48 Approved by: Mark Hughes M.D. on 12/14/2022 at 8:54 Chest x-ray: Radiologist's Impression: [address] [address] XRay Report Signed Patient: Morelia Tamayo MR#: [id number] : 02/05/1956 Acct:[id number] Age/Sex: 66 / F Date of Service: 12/14/22 Loc: ED Accession Number: [id number] Procedure: XR ankle LT min 3V Ordering Provider: Samy Sandra MD PROCEDURE: XR ANKLE LT MIN 3V INDICATIONS: pain/injury TECHNIQUE: 3 views of the ankle were acquired. COMPARISON: None. FINDINGS: Bones: Comminuted oblique spiral fracture of the distal tibia at the metadiaphysis with up to 1.6 cm posterior displacement of the distal fracture fragment as well as mild medial displacement and posterior medial angulation. Transverse fracture of the distal fibula is also seen at the metadiaphysis with similar posterior and medial displacement. The mortise joint remains intact. Soft tissues: Soft tissue edema surrounding the lower leg. IMPRESSION: Comminuted displaced fractures of the distal tibia and fibula. Approved by: Andrez Vaca M.D. on 12/14/2022 at 8:37 MDM Narrative Medical decision making narrative: Last well known 9:00 p.m. last night. Patient awoke a few times through the night feeling dizzy going to the bathroom. Awoke at 7:00 a.m. this morning and dizziness worsened. Brought in by from home. Patient seen here November 04, 2022 for hemorrhagic stroke. Was transferred to [facility]. Patient has improved neurologically with a right-sided deficits and slurred speech since the stroke according to . Patient is awake alert oriented x4. Denies the room spinning or her spinning. Just feels lightheaded. Blood pressure noted, she is not taken her blood pressure medication this morning. Fast exam is negative After history and exam CT head CT angiogram head and neck EKG CBC CMP troponin urinalysis normal saline blood pressure control MDM CC: Dizziness Complicating co-morbidities: Recent stroke Data collected from: Patient has been Medical records reviewed: November 04, 2022 here for stroke Differential considered: Includes but not limited to stroke vertigo dehydration TIA, arrhythmia, anemia Exam documented above, pertinent findings include: No nystagmus no limb weakness or numbness or tingling Lab Test results independently reviewed as above. Pertinent findings: WBC 5.6 hemoglobin 12.5 platelets 287 Sodium 138 potassium 3.5 GFR 51 troponin less than 0.012 Independently reviewed EKG normal sinus rhythm rate [address] elevation or depression Imaging studies independently reviewed: CT head without contrast decreased density of the left basal ganglia hemorrhage. There is surrounding hypoattenuation representing persistent vasogenic edema versus new cytotoxic edema. Consider MRI CT angiogram head and neck no acute finding Chest x-ray no acute finding Consultations: 8:35 a.m., spoke with radiologist, dry head CT/CT head without contrast, improved previous bleeding but there is surrounding edema, may be acute/new stroke 8:46 a.m.. Spoke with [facility] stroke Neurology, Dr. Fonseca, reviewed exam and imaging with her. At this time no change in management. This is like evolution of her prior stroke. No changes in medication. Recommends observation and MRI 9:[address] Lincoln, hospitalist, who will see patient for evaluation for admission Dr. Fonseca, called back again recommends MRI with and without contrast of the brain. I spoke with Dr. Lincoln as well and he will order Treatments: Normal saline hydralazine, oral Cardizem Re-evaluations: 9:10 a.m.. Reviewed results with patient and . Also reviewed discussion with Neurology as well as hospitalist. They do agree for admission. Blood pressure is improving. No headache. No changes in dizziness Discussion: Appropriate for admission. Patient just recently had stroke last month. This could be evolution of the stroke or sequelae. I did speak with Neurology and recommends observation and MRI. Hospitalist will admit. Blood pressure improving during course of stay. Diagnosis: Dizziness Discharge Plan Departure Patient Disposition: Admitted as Observation Clinical Impression: Dizziness Admit Date/Time: 12/14/22 09:26 Admit Provider: Tyler Lincoln
[2022-12-14 08:29] LABS: Add Manual Diff / Slide Review NO; Basophils Absolute Auto 100 /uL (0-100); Basophils Percent Auto 1.2 % (0-2); Eosinophils Absolute Auto 200 /uL (0-450); Hematocrit 36.1 % (36-46); Hemoglobin 12.5 g/dL (12.0-16.0); Lymphocytes Absolute Auto 2100 /uL (1100-4500); Lymphocytes Percent Auto 38.1 % (25-40); Mean Corpuscular HGB Conc 34.5 % (30-36); Mean Corpuscular Hemoglobin 31.9 PG (26-34); Mean Corpuscular Volume 92.3 fL (80-100); Monocytes Absolute Auto 500 /uL (0-900); Monocytes Percent Auto 8.5 % (3-14); Neutrophils Absolute Auto 2700 /uL (1500-7000); Neutrophils Percent Auto 49.2 % (50-75); Platelet Count 287 X10^3/uL (150-400); Red Blood Cell Count 3.91 X10^6/uL (4.0-5.2); Red Cell Distribution Width 13.1 % (11.6-14.8); White Blood Cell Count 5.6 X10^3/uL (4.5-11.0)
[2022-12-14] MEDS: HYDRALAZINE 20 MG/ML VIAL 5 MG IV (08:35)
[2022-12-14 08:40] LABS: INR 1.2 (0.9-1.3); Prothrombin Time 13.6 SECONDS (10.1-12.7)
[2022-12-14] MEDS: SODIUM CHLORIDE 0.9% 500 ML 1000 ML IV (08:40)
[2022-12-14 08:43] LABS: PTT Partial Thromboplastin Tim 32 SECONDS (26-36)
[2022-12-14 08:45] LABS: Alanine Aminotransferase 17 IU/L (<35); Albumin 4.3 g/dL (3.5-5.0); Albumin Globulin Ratio 1.4 (1.0-2.8); Alkaline Phosphatase 60 U/L (38-126); Aspartate Aminotransferase 20 IU/L (14-36); BUN Creatinine Ratio 29.9 (6-22); Bilirubin Total 0.5 mg/dL (0.2-1.3); Blood Urea Nitrogen 35 mg/dL (7-17); Calcium 9.6 mg/dL (8.4-10.2); Carbon Dioxide 28 mmol/L (22-32); Chloride 103 mmol/L (98-107); Creatine Kinase 25 U/L (30-135); Estimated Glomerular Filt Rate 51 mL/min (>60); Globulin 3.1 g/dL (1.7-4.1); Glucose 101 mg/dL (80-110); HEMOLYSIS < 15 (0-50); Magnesium 1.9 mg/dL (1.6-2.3); Potassium 3.5 mmol/L (3.4-5.1); Sodium 138 mmol/L (137-145); Total Protein 7.4 g/dL (6.3-8.2)
[2022-12-14 08:56] LABS: Troponin I < 0.012 ng/mL (0.01-0.034)
[2022-12-14] MEDS: dilTIAZem CD 180 MG CAP PO (09:26)
--- NOTE | 2022-12-14 09:40 | DI.MRI.S_ITS ---
PROCEDURE: MR HEAD/BRAIN WO/W CON INDICATIONS: possible new stroke, h/o hemorrhagic CVA TECHNIQUE: Noncontrast axial T1 spin echo, axial T2 fast spin echo, sagittal and axial FLAIR, coronal T2 fast spin echo, axial gradient echo, axial diffusion and ADC through the brain. After the administration of contrast, axial and coronal and sagittal T1 spin echo with fat saturation through the brain. COMPARISON: [facility], MR, MR STROKE, 04/14/2021, 11:15. [facility], CT, CT STROKE, 11/04/2022, 14:13. [facility], CT, CT ANGIO HEAD AND NECK, 12/14/2022, 8:22. [facility], CT, CT STROKE, 12/14/2022, 8:22. [facility], MR, MR HEAD/BRAIN WO/W CON, 09/12/2020, 9:14. FINDINGS: Image quality: Excellent. CSF spaces: Basal cisterns are patent. No extra-axial fluid collections. Ventricles are normal in size and shape. Brain: Within the left basal ganglia/deep white matter, there is resolving hemorrhage seen. There is rim enhancement seen of this focus. No midline shift. There is cerebral volume loss for age. There is periventricular white matter chronic small vessel ischemic change. The brainstem appears normal. Diffusion-weighted images demonstrate no acute ischemic insults. No chronic ischemic insults. Normal intravascular flow voids are present. Skull and face: Calvarial marrow is normal in signal. Orbits appear normal. Sinuses: There is focal moderate to prominent right frontal sinus and anterior right ethmoid air cell mucosal thickening. No abnormal fluid is seen within the mastoid air cells. IMPRESSION: No new infarct is seen. Known prior hemorrhagic infarct of the left basal ganglia/deep white matter, which is resolving compared to priors. Dictated by: Efrain Patel M.D. on 12/14/2022 at 14:37 Approved by: Efrain Patel M.D. on 12/14/2022 at 14:41
[2022-12-14 10:01] LABS: Cholesterol 241 mg/dL (140-199); HDL Cholesterol 62 mg/dL (40-60); LDL Cholesterol Calculated 161 mg/dL (<100); Triglycerides 89 mg/dL (35-150)
[2022-12-14 10:05] LABS: Hemoglobin A1C% w Est Avg Glu 5.8 % (4.0-6.0)
--- NOTE | 2022-12-14 10:30 | P.HP_ITS ---
History of Present Illness History of Present Illness Date Patient Seen: 12/14/22 Chief complaint: dizzy/HX of Stroke Narrative: Brooklyn Watts is a 59-year-old female with past medical history of hemorrhagic stroke on 01/04, WPW s/p ablation, hypertension, hyperlipidemia, MS in remission, GERD, depression and asthma who presents with acute vertigo concerning for stroke. Had episodes of dizziness at home when waking up this morning. Was concerned she was having another stroke. Came to ED where head CT showed stable prior hemorrhagic stroke. Telestroke recommended obs and brain MRI w/wo contrast. Patient states her vertigo has now improved. PT/OT eval ordered and OT noted her right side is a little weaker. BP quite high so IV hydralazine given in ED to keep systolic <160. [facility] Medical History History of Trvyo-Vhzaafble-Qqgha (WPW) syndrome (~1994) Multiple sclerosis HTN (hypertension) Asthma Cat allergies Seasonal allergies Family History Mother Hypertension Social History marital status: household members: spouse occupational status: previously employed Smoking Status: Former smoker alcohol intake: current substance use type: does not use Meds Home Medications and Allergies Home Medications Medication Instructions Recorded Confirmed Type albuterol sulfate 90 mcg/actuation 1 inh inhalation QID PRN asthma 10/24/19 10/20/22 History aerosol inhaler carisoprodol 350 mg tablet 350 mg PO BID 10/24/19 10/20/22 History lorazepam 1 mg tablet 1 mg PO DAILY PRN Anxiety 10/24/19 10/20/22 History ascorbate calcium (vitamin C) 500 500 mg PO DAILY 04/09/20 10/20/22 History mg tablet cholecalciferol (vitamin D3) 10 10 mcg PO DAILY 04/09/20 10/20/22 History mcg (400 unit) capsule microfibril. collagen hemostat 1 applic topical ONCE 04/09/20 10/20/22 History turmeric 400 mg capsule mg PO 04/09/20 10/20/22 History diltiazem HCl 240 mg 180 mg PO BID 04/14/20 12/14/22 History capsule,extended release 24 hr, controlled fluticasone 250 mcg-salmeterol 50 1 inh inhalation BID 04/14/20 10/20/22 History mcg/dose blistr powdr for inhalation (Advair Diskus) omeprazole 20 mg capsule,delayed 20 mg PO DAILY #60 caps 04/17/21 10/20/22 Rx release amitriptyline 10 mg tablet 25 mg PO QPM 10/20/22 12/14/22 History dextroamphetamine-amphetamine 10 1 tab PO BID 10/20/22 10/20/22 History mg tablet sertraline 50 mg tablet 50 mg PO DAILY 10/20/22 10/20/22 History tramadol 50 mg tablet 50 mg PO Q4H PRN 10/20/22 10/20/22 History sennosides 8.6 mg tablet (senna) 8.6 mg PO DAILY 12/14/22 12/14/22 History Allergies Allergy/AdvReac Type Severity Reaction Status Date / Time No Known Drug Allergies Allergy Verified 12/14/22 08:03 Review of Systems Review of Systems Narrative: All other systems reviewed with the patient and are negative unless otherwise stated. Exam Vital Signs (past 8 hours): - 12/14/22 07:57 12/14/22 08:33 12/14/22 08:33 Temperature 97.1 F L Pulse Rate 65 62 Respiratory Rate 24 21 Blood Pressure 177/98 H 173/91 H Pulse Oximetry 100 99 Oxygen Delivery Method Room Air 12/14/22 08:35 12/14/22 09:00 12/14/22 09:01 Temperature Pulse Rate 60 65 Respiratory Rate 23 Blood Pressure 172/91 H 181/94 H Pulse Oximetry 100 Oxygen Delivery Method 12/14/22 09:01 12/14/22 09:09 12/14/22 09:30 Temperature Pulse Rate 65 63 65 Respiratory Rate 24 Blood Pressure 181/94 H Pulse Oximetry 100 100 Oxygen Delivery Method 12/14/22 09:30 12/14/22 10:00 12/14/22 10:00 Temperature Pulse Rate 68 Respiratory Rate 22 Blood Pressure 185/86 H 176/90 H Pulse Oximetry 99 Oxygen Delivery Method Oxygen Delivery Method Room Air Narrative Exam Narrative: GEN: no acute distress HEENT: moist mucous membranes, PERRL NECK: trachea midline, no JVD CV: regular rate and rhythm, no murmurs PULM: clear bilaterally ABD: soft, nontender, nondistended, no organomegaly EXT: warm and well perfused with no edema NEURO: awake, alert, oriented, no focal deficits Objective Labs 12/14/22 08:17 12/14/22 08:17 Labs: Laboratory Results - last 24 hr 12/14/22 08:17 WBC 5.6 RBC 3.91 L Hgb 12.5 Hct 36.1 MCV 92.3 MCH 31.9 MCHC 34.5 RDW 13.1 Plt Count 287 Neut % (Auto) 49.2 L Lymph % (Auto) 38.1 Calvert % (Auto) 8.5 Eos % (Auto) 3.0 Baso % (Auto) 1.2 Neut # (Auto) 2700 Lymph # (Auto) 2100 Calvert # (Auto) 500 Eos # (Auto) 200 Baso # (Auto) 100 PT 13.6 H INR 1.2 APTT 32 Sodium 138 Potassium 3.5 Chloride 103 Carbon Dioxide 28 BUN 35 H Creatinine 1.17 H Estimated GFR 51 L BUN/Creatinine Ratio 29.9 H Glucose 101 Hemoglobin A1c 5.8 Calcium 9.6 Magnesium 1.9 Total Bilirubin 0.5 AST 20 ALT 17 Alkaline Phosphatase 60 Total Creatine Kinase 25 L Troponin I < 0.012 Total Protein 7.4 Albumin 4.3 Globulin 3.1 Albumin/Globulin Ratio 1.4 Triglycerides 89 Cholesterol 241 H LDL Cholesterol, Calc 161 H HDL Cholesterol 62 H Assessment & Plan Assessment & Plan narrative: # acute vertigo -need to rule out TIA versus CVA setting of recent hemorrhagic stroke -CT head with prior hemorrhagic stroke decreased in size with surrounding vasogenic edema versus cytotoxic edema -tele neuro called by ED and recommended observation admit and MRI with/without contrast -MRI w/wo contrast negative for acute stroke -keep systolic blood pressure less than 160 -no aspirin or Plavix given hemorrhagic stroke -echo without PFO or clot -tele -PT/OT eval # hypertension -tele stroke recommended keeping systolic less than 160 -continue home dilt and labetalol as needed -may add 2nd BP med # hyperlipidemia -not on statin per home med list -start Lipitor 80 mg nightly # asthma -DuoNebs as needed # depression and anxiety -continue home sertraline and lorazepam as needed # ADHD -hold home Adderall Code status is full code. DVT prophylaxis with SCDs. Proxy is spouse Samy. I have reviewed home meds and used all available resources to reconcile the home meds. Dispo: Home on 12/15.
[2022-12-14 10:33] LABS: TSH w/ Reflex to FT4 1.36 uIU/mL (0.47-4.68)
--- NOTE | 2022-12-14 10:35 | DI.ECHO.S_ITS ---
[facility]---------+ [facility] +---------+ : : [address] : : : : [id number] : : : : Phone: [phone]---------+ Echocardiogram Report + + :Name: IGNACIO MUELLER Study Date: 12/14/2022 Height: 62 in : :[facility] ReadingLocation: Weight: 113 lb : : Gender: Female BSA: 1.5 m2 : :: 1955 Age: 67 yrs BP: 176/90 mmHg: :Reason For Study: TIA, R/O PFO OR CLOT : :Ordering Physician: VAL, : :MIRIAM Gleason D.O Performed By: Tere Mendiola : :Referring: MIRIAM NEAL : + + Interpretation Summary Normal left ventricle size with ejection fraction 60-65%. No valvular abnormality. Injection of contrast documented no interatrial shunt. Comparison is made with the echocardiogram of 08/12/2015, no significant change. Procedure: A two-dimensional transthoracic echocardiogram with color flow and Doppler was performed. The study quality was technically adequate. Comparison is made with the echocardiogram of 08/12/2015. The patient was in sinus rhythm with heart rates between 70-77 bpm during the exam. Left Ventricle: The left ventricle is normal in size and wall thickness. The ejection fraction is estimated to be 60-65%. There are no focal wall motion abnormalities. Right Ventricle: The right ventricle is normal in size and function. Atria: The left atrial size is normal. Right atrial size is normal. There is no Doppler evidence for an interatrial shunt. Injection of contrast documented no interatrial shunt. Mitral Valve: The mitral valve is normal in structure and function. There is no mitral regurgitation noted. Aortic Valve: The aortic valve is trileaflet. The aortic valve opens well. There is no aortic valve stenosis. No aortic regurgitation is present. Tricuspid Valve: The tricuspid valve is normal in structure and function. There is trace tricuspid regurgitation. The right ventricular systolic pressure is estimated to be at least 29 mmHg based on an estimated right atrial pressure of 3 mm Hg. Pulmonic Valve: The pulmonic valve leaflets are thin and pliable; valve motion is normal. There is no pulmonic valvular regurgitation. Great Vessels: The aortic root is normal size. The dimensions of the ascending aorta are normal. The IVC is of normal diameter and collapses greater than 50% with a sniff. This suggests a low right atrial pressure of 3 mm Hg. Pericardium/ Pleura There is no pericardial effusion. There is no pleural effusion. MMode/2D Measurements & Calculations LVIDd: 4.5 cm LVOT diam: 2.0 cm LVIDs: 3.2 cm Ao root diam: 3.0 cm FS: 27.9 % asc Aorta Diam: 3.1 cm EPSS: 0.43 cm Ao Arch Diam (Prox Trans): 2.2 cm IVSd: 0.63 cm LVPWd: 0.67 cm LV novoa. diameter/BSA (cm/m^2): 3.0 LV sys. diameter/BSA (cm/m^2): 2.2 LA A2 area: 12.5 cm2 RA long axis: 3.9 cm LA A4 area: 10.9 cm2 RA area: 10.1 cm2 LA length (vol): 4.1 cm RA vol: 22.3 ml LA vol: 28.4 ml RA : 14.8 ml/m2 LA vol index: 18.9 ml/m2 IVC diam: 0.95 cm RVD1 (basal): 3.3 cm Doppler Measurements & Calculations Ao V2 max: 106.4 cm/sec LVOT Max Gamaliel: 98.3 cm/sec Ao V2 mean: 75.6 cm/sec LV V1 max P.9 mmHg Ao max P.5 mmHg LV V1 VTI: 19.1 cm Ao mean P.5 mmHg VALERY(I,D): 3.2 cm2 Ao V2 VTI: 19.3 cm VALERY(V,D): 3.0 cm2 sev ratio: 0.99 VALERY indexed to BSA (cm^2/m^2): 2.1 MV E max gamaliel: 46.1 cm/sec TR max gamaliel: 255.6 cm/sec MV A max gamaliel: 54.7 cm/sec TR max P.1 mmHg MV E/A: 0.84 PA V2 max: 82.5 cm/sec Med Peak E' Gamaliel: 4.6 cm/sec PA V2 mean: 58.7 cm/sec E/E' med: 10.0 PA mean P.5 mmHg Lat Peak E' Gamaliel: 7.4 cm/sec PA pr(Accel): 34.5 mmHg E/E' lat: 6.2 E/e' average: 8.1 MV dec time: 0.26 sec SVLVOT): 61.8 ml Electronically signed by: Jason Ramirez on Reading Physician:12/14/2022 04:59 PM
[2022-12-14] MEDS: SODIUM CHLORIDE 0.9% 1,000 ML 100 ML IV (11:43)
[2022-12-14] MEDS: SERTRALINE 50 MG TABLET PO (11:43)
--- NOTE | 2022-12-14 13:45 | PT.IIE ---
Medical History (Last Reviewed 12/14/22 @ 08:21 by Samy Sandra MD) Asthma Cat allergies History of Accle-Qyrgqobsf-Nnrle (WPW) syndrome (~1994) HTN (hypertension) Multiple sclerosis Seasonal allergies Physical Therapy Inpatient Evaluation/Re-Eval M1 PT/OT-IP Prior Functional Status Start: 12/14/22 14:45 Freq: NEEDED Status: Active Protocol: Document 12/14/22 14:45 AB (Rec: 12/14/22 15:09 AB [id number]) Medical Review Prior Functional Status Medical History Reviewed Yes Communication Is able to express needs but has word finding difficulties. Mobility and Gait Pt reports ambulating independently, but sometimes uses SPC when she is not feeling confident. Activities of Daily Living and IADL's Pt reports she can perform ADLs independently but requires assistance from for IADLs. Social History Household Members spouse Living Arrangements House Number of Floors (Floors) One Floor Number of Stairs To Enter/Railing? no RUCHI, only a threshold Home Environment Standard Height Toilet,Walk in Shower,Built-In Shower Seat Home Equipment Straight Cane,Hand Held Shower ,Grab Bars Near Toilet,Grab Bars In Shower Additional Social History Comment Pt reports her can assist her with all needs if necessary. M2 PT-IP Current Condition Start: 12/14/22 14:45 Freq: NEEDED Status: Active Protocol: Document 12/14/22 14:45 AB (Rec: 12/14/22 15:09 AB [id number]) Physical Therapy Current Condition Current Condition Evaluation Date 12/14/22 Treatment Diagnosis dizziness Onset Date 12/14/22 M3 PT-IP Subjective Start: 12/14/22 14:45 Freq: NEEDED Status: Active Protocol: Document 12/14/22 14:45 AB (Rec: 12/14/22 15:09 AB [id number]) Subjective Physical Therapy Visit Type Type Initial Evaluation Visit Start Time 13:45 Visit Stop Time 14:14 Total Visit Minutes 29 Physical Therapy Visit Comments Patient Comments Pt presents semi supine in bed and is agreeable to PT evaluation. She reports continued mild dizziness currently. Therapy Pain Assessment Pain When Pain Assessed At Rest Pain Present Pain Present Denied Pain M4 PT-IP Mobility and Gait Start: 12/14/22 14:45 Freq: NEEDED Status: Active Protocol: Document 12/14/22 14:45 AB (Rec: 12/14/22 15:09 AB [id number]) PT-Bed Mobility Assessment Rolling Level of Assist Independent Supine to Sit Supine to Sit Independent Sit to Supine Sit to Supine Independent Scooting Scooting to Edge of Bed Independent Scooting Up and Down in Bed Independent PT-Transfer Assessment Sit to and From Stand Sit to and from Stand Independent Equipment Transfer Assistive Device Gait Belt Transfers Transfer Destination Bed,Chair,Toilet Transfer Technique Stand Step Pivot Transfer Ability Level of Assist Independent Comments Mobility Comments The pt was able to perform bed mobility, STS and transfers independently, without an increase in symptoms. She performed transfers to toilet x2, chair x2 and bed x1 with independence and minimal use of UEs. The pt required use of restroom x2 during session and was able to perform pericare and hand hygiene with independence. The pt was able to draft roller picker an object from the floor independently but reports increased dizziness when bending over, but no LOB was observed. Pt also ambulated and performed stairs as noted below. At end of session, pt returned to bed with all needs met and call light within reach. Gait Assessment Gait Gait Assistance Required: Standby Assistance Distance (Feet) 230 Assistive Devices Assistive Device Gait Belt Gait Deviations General Gait Pattern Antalgic,Decreased Stride Length,Decreased Feet Clearance Factors Limiting Gait Function Factors Limiting Gait Function Decreased Activity Tolerance, Decreased Strength,Poor Safety Awareness Comments Gait Comments Pt is able to ambulate without AD, but has antalgic gait pattern with decreased right step length, likely due to right sided weakness from previous stroke. This gait deviation becomes more apparent as she fatigues. No significant LOB noted, however decreased safety awareness is noted when navigating obstacles and curbs, as the pt narrowly avoids these. Stair Climbing Assessment Evaluation Level of Assist On Stairs Standby Assistance Devices Stair Climbing Assistive Devices Left Railing,Right Railing Technique/Endurance Stair Climbing Direction Ascend and Descend Stair Climbing Technique Step Over Step,Step to Step Number of Steps Climbed 3 Query Text: Stair Climbing Set # Repetitions (reps) 1 Comments Stair Climbing Comments Pt is able to ascend with step over step pattern, but descends with step to step pattern. PT-Balance Assessment Sitting Balance and Reactions Static Sitting Balance Ability Normal Dynamic Sitting Balance Ability Normal Standing Balance and Reactions Static Standing Balance Ability Normal Dynamic Standing Balance Ability Good Comments Other Balance Tests/Deviations/Treatment Normal ALEX with eyes closed: : 30 seconds, no abnormal sway noted, no increased dizziness noted Functional Assessments Functional Tests 5 Times Sit to Stand 12 seconds (no increase in symptoms) M5 PT-IP Objective Assessments Start: 12/14/22 14:45 Freq: NEEDED Status: Active Protocol: Document 12/14/22 14:45 AB (Rec: 12/14/22 15:09 AB [id number]) Orientation Orientation/Cognition Level of Alertness Alert Orientation Name,Age,Birthday,Month,Date, Year,Day of Week,Place, Situation Language Function Ability Word Finding Difficulties Safety Awareness Decreased Safety Awareness Memory Description Short Term Impaired Gross Range of Motion Upper Extremity ROM Assessment Within Functional Limits Lower Extremity ROM Assessment Within Functional Limits Strength Upper Extremity Strength Assessment Within Functional Limits Lower Extremity Strength Assessment Within Functional Limits M6 PT-IP Treatment Start: 12/14/22 14:45 Freq: NEEDED Status: Active Protocol: Document 12/14/22 14:45 AB (Rec: 12/14/22 15:09 AB [id number]) Physical Therapy Treatment Education Education Provided Safety Brace Education Patient M7 PT-IP Assessment and Plan Start: 12/14/22 14:45 Freq: NEEDED Status: Active Protocol: Document 12/14/22 14:45 AB (Rec: 12/14/22 15:09 AB [id number]) PT Summary Assessment and Plan Potential Rehabilitation Potential Good Status of Condition at Evaluation Stable Summary Impairments Gait,Activity Tolerance Assessment Summary Brooklyn Watts is a 67 year old female patient presenting with complaints of new onset of dizziness beginning last night , and has a history of stroke. Today's PT evaluation revealed minimal functional mobility deficits, as she is able to perform all mobility with independence or SBA. The pt does demonstrate gait deviations which are likely due to right sided weakness from previous stroke. PT evaluation is unable to determine whether peripheral vestibular dysfunction may be contributing to the pt's symptoms due to the pt having word finding difficulties to describe her symptoms. Based on her current level of function, PT recommends discharge to home with assistance due to her symptoms . The pt may benefit from referral to outpatient PT upon discharge to improve gait abnormalities and to further determine whether dizziness is related to the vestibular system if all medical tests are clear. PT will discharge pt from PT at this time. Goals Bed Mobility Goal Independent Transfer Goal Independent Gait Goal Independent Gait Distance 300 Days to Meet Goals 10 Frequency of Treatment Frequency Of Treatment Discharge Treatment Plan Physical Therapy Treatment Plan Bed Mobility Training,Transfer Training,Gait Training, Therapeutic Exercise,Balance Retraining,Discharge Planning, Hot or Cold Pack,Neuromuscular Re-ed,Coordination Retraining ,Manual Therapy Recommendations To Nursing Amount of Assist Needed Standby Assistance Discharge Recommendations PT Discharge Recommendations Home with Assistance, Outpatient PT Transportation Needs at Discharge Private Vehicle
--- NOTE | 2022-12-14 16:45 | OT.IP.EVAL ---
Past Medical History (Last Reviewed 12/14/22 @ 08:21 by Samy Sandra MD) Asthma Cat allergies History of Tzacv-Bglhzkage-Cpcbp (WPW) syndrome (~1994) HTN (hypertension) Multiple sclerosis Seasonal allergies Occupational Therapy Inpatient Evaluation/Re-Eval M1 PT/OT-IP Prior Functional Status Start: 12/14/22 16:49 Freq: NEEDED Status: Active Protocol: Document 12/14/22 16:49 [facility] (Rec: 12/14/22 17:15 [facility] [id number]) Medical Review Prior Functional Status Medical History Reviewed Yes Communication Is able to express needs but has word finding difficulties. Mobility and Gait Pt reports ambulating independently, but sometimes uses SPC when she is not feeling confident. Activities of Daily Living and IADL's Pt reports she can perform ADLs independently but requires assistance from for IADLs. 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 Social History Household Members spouse Living Arrangements House Number of Floors (Floors) One Floor Number of Stairs To Enter/Railing? no RUCHI, only a threshold Home Environment Standard Height Toilet,Walk in Shower,Built-In Shower Seat Home Equipment Straight Cane,Hand Held Shower ,Grab Bars Near Toilet,Grab Bars In Shower Additional Social History Comment Pt reports her can assist her with all needs if necessary. M2 OT-IP Current Condition Start: 12/14/22 16:49 Freq: Status: Active Protocol: Document 12/14/22 16:49 [facility] (Rec: 12/14/22 17:15 [facility] [id number]) Occupational Therapy Current Condition Current Condition Evaluation Date 12/14/22 Treatment Diagnosis Acute vertigo, possible TIA Diagnosis Onset Date 12/14/22 M3 OT- IP Subjective and Pain Start: 12/14/22 16:49 Freq: Status: Active Protocol: Document 12/14/22 16:49 [facility] (Rec: 12/14/22 17:15 [facility] [id number]) OT- Subjective Occupational Therapy Visit Type Type Initial Evaluation Visit Start Time 16:00 Visit Stop Time 16:45 Total Visit Minutes 45 Occupational Therapy Visit Comments Patient Comments Pt agreed to work with OT. Pt' s in the room. Patient/Caregiver Goals TO go home. OT Pain Assessment Pain When Pain Assessed At Rest Pain Present Pain Present Denied Pain M4 OT- IP ADL's Start: 12/14/22 16:49 Freq: Status: Active Protocol: Document 12/14/22 16:49 [facility] (Rec: 12/14/22 17:15 [facility] [id number]) OT SOY-Fkhq-Rhfmylu General Evaluation Self-Feeding Ability Independent OT ADL-Grooming Comments OT Grooming Comments Not performed. OT ADL-Oral Care Comments Oral Care Comments Not performed. OT ADL-Dressing General Eval Lower Body Dressing Ability Standby Assistance Comments OT Dressing Comments Pt able to pj/doff her socks while seated. OT ADL-Toileting Comments OT Toileting Comments Not performed, pt states used the toilet earlier. OT ADL-Bathing Comments OT Bathing Comments Not performed. M5 OT- IP IADL's Start: 12/14/22 16:49 Freq: Status: Active Protocol: Document 12/14/22 16:49 [facility] (Rec: 12/14/22 17:15 [facility] [id number]) OT-Instrumental Activities of Daily Living Deficits IADL Deficits Identified Deficits Home Safety Awareness Awareness of Need for Assistance at Home Good Awareness Home Safety Comments Pt has word finding difficulties and relies on her for IADL and driving needs. Medication Management Medication Management Caregiver Administers Money Management Money Management Caregiver Provides Assistance Meal Preparation Meal Preparation Caregiver Provides Assist Market Intelligence Consultant Market Intelligence Consultant Caregiver Provides Assist Driving Driving Concerns Identified Regarding Safety M6 OT- IP Functional Cognition Start: 12/14/22 16:49 Freq: Status: Active Protocol: Document 12/14/22 16:49 [facility] (Rec: 12/14/22 17:15 [facility] [id number]) Cognitive Factors Limiting Selfcare Function Cognitive Ability Level of Alertness Alert Patient Orientation Name,Place,Situation Attention Span Ability Capable of Focused Attention, Capable of Sustained Attention Ability to Follow Commands Able to Follow One Step Commands Problem Solving Ability Needs Assist to Identify Solutions Executive Function Ability Unable to Switch Focus,Unable to Remember Details Cognitive Comments Cognitive Assessment Comments Pt has difficulty with getting her words out. Pt scored 266 seconds on Gerlach MAking Part B which implies severe deficits for visual attention, speed of processing, mental flexibility, executive functioning, and mental flexibility. Pt's feels that she is talking a bit better today but is weaker overall. Pt initially able to read the clock accurately and at the end of the session needing assist. OT- Vision and Hearing OT- Hearing Assessment OT- Hearing Assessment WFL OT- Vision Assessment Visual Acuity WFL,Glasses For Reading Visual Attentiveness WFL Occular Pursuits WFL Visual Convergence WFL Visual Mina WFL Diplopia Absent M7 OT- IP Mobility and Balance Start: 12/14/22 16:49 Freq: Status: Active Protocol: Document 12/14/22 16:49 [facility] (Rec: 12/14/22 17:15 [facility] [id number]) OT- Bed Mobility Assessment Rolling Level of Assistance Independent Supine to Sit Supine to Sit Assist Independent Sit to Supine Sit to Supine Assist Independent OT-Transfer Assessment Sit to and From Stand Sit to and from Stand Standby Assistance Comments Mobility Comments BP supine 148/83, sitting 141/ 91, and standing 113/87 and then after a few minutes 129/ 90. Pt not feeling any symptoms, just tired. OT- Balance Assessment Sitting Balance and Reactions Static Sitting Balance Ability Normal Dynamic Sitting Balance Ability Normal Standing Balance and Reactions Static Standing Balance Ability Normal M8 OT- IP Objective Assessments Start: 12/14/22 16:49 Freq: Status: Active Protocol: Document 12/14/22 16:49 [facility] (Rec: 12/14/22 17:15 [facility] [id number]) OT Gross Range of Motion Upper Extremity Range of Motion Assessment Within Functional Limits OT Strength Upper Extremity Strength Assessment Right Impaired Comments Strength Comments LUE 5/5, RUE from proximal to distal 4+/5 to 4/5. OT- Coordination Assessment Upper Extremity Finger to Nose Test Within Functional Limits Comments Coordination Comments RUE 29 seconds which is under 10th percentile for her age, LUE 22 seconds which is at 75th percentile for her age. Pt feels that her right side is a little weaker then usually since being at the hospital. OT Sensation Assessment Comments Summary Comments Intact for proprioception and kinesthesia. M9 OT- IP Assessment and Plan Start: 12/14/22 16:49 Freq: Status: Active Protocol: Document 12/14/22 16:49 [facility] (Rec: 12/14/22 17:15 [facility] [id number]) OT Summary Assessment and Plan Potential Rehabilitation Potential Excellent Analytic Complexity at Evaluation Low Summary OT Impairments Strength,Balance,Coordination, Functional Cognition, Functional Mobility,Bathing, Activity Tolerance Progress Towards Goals Progressing Toward Goals Assessment Summary Pt low complexity and here due to acute vertigo and right sided weakness. 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 Pt noted right hand is weaker and decreased smoothness and coordination of movement, able to go over activities for pt to work on at home with her to work on FMS needs. Pt's BP 148/83 supine, 141/91 sitting and 113/87 and 129/90 while standing- pt not complaining of any vertigo but feeling tired. Pt scored 266 on Gerlach making Part B which implies severe deficits for task switching, speed of processing, mental flexibility, executive functioning, and mental flexibility. To go over FMS activites and exercises with pt and her tomorrow prior to going home. 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 Goals Dressing Goal Independent Toileting Goal Independent Bathing Goal Independent Toilet Transfer Goal Independent Shower Transfer Goal Independent OT-Other Goals Pt to be independent to do functional FMA with her at home. Days to Meet Goals 2 Frequency of Treatment Frequency Of Treatment Once a Day Treatment Plan OT Treatment Plan ADL Training,Functional Cognition Training,Functional Mobility,Patient/Family Education,Discharge Planning Discharge Recommendations OT Discharge Recommendations Home with Assistance, Outpatient PT Transportation Needs at Discharge Private Vehicle
[2022-12-14] MEDS: ATORVASTATIN 20 MG TABLET 80 MG PO (21:57)
[2022-12-14] MEDS: LORazepam 1 MG TABLET PO (21:57)
[2022-12-14] MEDS: MELATONIN 3 MG TABLET 6 MG PO (21:57)
[2022-12-14] MEDS: AMITRIPTYLINE 10 MG TABLET PO (21:57)
[2022-12-15 01:40] VITALS: BP 151/85; PULSE 75; RESP 16; TEMP 36.4; O2SAT 96
[2022-12-15 05:36] VITALS: BP 173/98; PULSE 70; RESP 16; TEMP 36.4; O2SAT 97
[2022-12-15 05:47] LABS: Add Manual Diff / Slide Review NO; Basophils Absolute Auto 0 /uL (0-100); Basophils Percent Auto 0.3 % (0-2); Eosinophils Absolute Auto 200 /uL (0-450); Eosinophils Percent Auto 3.8 % (2-4); Hematocrit 32.1 % (36-46); Hemoglobin 11.3 g/dL (12.0-16.0); Lymphocytes Absolute Auto 1600 /uL (1100-4500); Lymphocytes Percent Auto 32.3 % (25-40); Mean Corpuscular HGB Conc 35.1 % (30-36); Mean Corpuscular Hemoglobin 32.3 PG (26-34); Mean Corpuscular Volume 92.1 fL (80-100); Monocytes Absolute Auto 300 /uL (0-900); Monocytes Percent Auto 5.8 % (3-14); Neutrophils Absolute Auto 2900 /uL (1500-7000); Neutrophils Percent Auto 57.8 % (50-75); Platelet Count 243 X10^3/uL (150-400); Red Blood Cell Count 3.49 X10^6/uL (4.0-5.2); Red Cell Distribution Width 12.6 % (11.6-14.8); White Blood Cell Count 5.1 X10^3/uL (4.5-11.0)
[2022-12-15 05:54] VITALS: BP 172/88; PULSE 71
[2022-12-15] MEDS: LABETALOL 20 MG/4 ML SYRINGE 10 MG IV (05:54)
[2022-12-15] MEDS: PANTOPRAZOLE DR 20 MG TABLET PO (05:54)
[2022-12-15 06:29] VITALS: BP 141/84; PULSE 65
[2022-12-15 06:36] LABS: BUN Creatinine Ratio 33.3 (6-22); Blood Urea Nitrogen 31 mg/dL (7-17); Calcium 8.7 mg/dL (8.4-10.2); Carbon Dioxide 24 mmol/L (22-32); Chloride 105 mmol/L (98-107); Estimated Glomerular Filt Rate > 60 mL/min (>60); Glucose 106 mg/dL (80-110); HEMOLYSIS < 15 (0-50); Potassium 3.1 mmol/L (3.4-5.1); Sodium 136 mmol/L (137-145)
--- NOTE | 2022-12-15 07:54 | PM.DS.1 ---
History of Present Illness History of Present Illness Chief complaint: dizzy/HX of Stroke Narrative: Brooklyn Watts is a 59-year-old female with past medical history of hemorrhagic stroke on 01/04, WPW s/p ablation, hypertension, hyperlipidemia, MS in remission, GERD, depression and asthma who presents with acute vertigo concerning for stroke. Had episodes of dizziness at home when waking up this morning. Was concerned she was having another stroke. Came to ED where head CT showed stable prior hemorrhagic stroke. Telestroke recommended obs and brain MRI w/wo contrast. Patient states her vertigo has now improved. PT/OT eval ordered and OT noted her right side is a little weaker. BP quite high so IV hydralazine given in ED to keep systolic <160. Discharge Providers Provider Date of admission: 12/14/22 09:26 Discharge Date: 12/15/22 Primary care physician: Maverick Ribeiro MD Consults: 12/14/22 09:42 Consult to Occupational Therapy Evaluate & Treat Comment: Physician Instructions: Evaluate and treat Consult to Physical Therapy Evaluate & Treat Comment: Physician Instructions: Evaluate and Treat 12/14/22 13:30 Consult to Dietitian, Adult Routine Comment: Reason For Exam: reports weight loss of 6 lbs Discharge provider: Tyler Lincoln DO Summary Hospital Course Discharge Diagnosis: # acute vertigo -need to rule out TIA versus CVA setting of recent hemorrhagic stroke -CT head with prior hemorrhagic stroke decreased in size with surrounding vasogenic edema versus cytotoxic edema -tele neuro called by ED and recommended observation admit and MRI with/without contrast -MRI w/wo contrast negative for acute stroke -keep systolic blood pressure less than 160 -no aspirin or Plavix given hemorrhagic stroke -echo without PFO or clot -tele -PT/OT eval cleared for home # hypertension -tele stroke recommended keeping systolic less than 160 -continue home dilt and labetalol as needed -may add 2nd BP med # hyperlipidemia -not on statin per home med list -start Lipitor 80 mg nightly # asthma -DuoNebs as needed # depression and anxiety -continue home sertraline and lorazepam as needed # ADHD -hold home Adderall Hospital Course: Admitted for dizziness with concern for new stroke, given recent hemorrhagic stroke. Repeat MRI showed no acute stroke. BP high so PCP will need to adjust. Continued on her curretn meds. Exam Vital Signs (past 8 hours): - 10/11/23 01:40 12/15/22 05:36 12/15/22 05:54 Temperature 97.6 F 97.6 F Pulse Rate 75 70 71 Respiratory Rate 16 16 Blood Pressure 151/85 H 173/98 H 172/88 H Pulse Oximetry 96 97 12/15/22 06:29 Temperature Pulse Rate 65 Respiratory Rate Blood Pressure 141/84 H Pulse Oximetry Oxygen Delivery Method Room Air Oxygen Flow Rate 0 Narrative Exam Narrative: GEN: no acute distress HEENT: moist mucous membranes, PERRL NECK: trachea midline, no JVD CV: regular rate and rhythm, no murmurs PULM: clear bilaterally ABD: soft, nontender, nondistended, no organomegaly EXT: warm and well perfused with no edema NEURO: awake, alert, oriented, no focal deficits Objective Labs 12/15/22 05:26 12/15/22 05:26 Labs: Laboratory Results - last 24 hr 12/14/22 12/15/22 08:17 05:26 WBC 5.6 5.1 RBC 3.91 L 3.49 L Hgb 12.5 11.3 L Hct 36.1 32.1 L MCV 92.3 92.1 MCH 31.9 32.3 MCHC 34.5 35.1 RDW 13.1 12.6 Plt Count 287 243 Neut % (Auto) 49.2 L 57.8 Lymph % (Auto) 38.1 32.3 [place] % (Auto) 8.5 5.8 Eos % (Auto) 3.0 3.8 Baso % (Auto) 1.2 0.3 Neut # (Auto) 2700 2900 Lymph # (Auto) 2100 1600 [place] # (Auto) 500 300 Eos # (Auto) 200 200 Baso # (Auto) 100 0 PT 13.6 H INR 1.2 APTT 32 Sodium 138 136 L Potassium 3.5 3.1 L Chloride 103 105 Carbon Dioxide 28 24 BUN 35 H 31 H Creatinine 1.17 H 0.93 Estimated GFR 51 L > 60 BUN/Creatinine Ratio 29.9 H 33.3 H Glucose 101 106 Hemoglobin A1c 5.8 Calcium 9.6 8.7 Magnesium 1.9 Total Bilirubin 0.5 AST 20 ALT 17 Alkaline Phosphatase 60 Total Creatine Kinase 25 L Troponin I < 0.012 Total Protein 7.4 Albumin 4.3 Globulin 3.1 Albumin/Globulin Ratio 1.4 Triglycerides 89 Cholesterol 241 H LDL Cholesterol, Calc 161 H HDL Cholesterol 62 H TSH 1.36 PFSH Medical History History of Dtnwn-Iyinvtndv-Dbhyg (WPW) syndrome (~1994) Multiple sclerosis HTN (hypertension) Asthma Cat allergies Seasonal allergies Family History Mother Hypertension Social History marital status: household members: spouse occupational status: previously employed Smoking Status: Former smoker alcohol intake: current substance use type: does not use Discharge Plan Discharge Plan Patient Disposition: Home Provider Discharge Comment: Your MRI showed no new strokes. Your dizziness may be blood pressure related. Please call your doctor about adjusting your blood pressure meds. Discharge orders & Medications Prescriptions: New atorvastatin 80 mg tablet 80 mg PO BEDTIME Qty: 30 0RF Continued sertraline 50 mg tablet 50 mg PO DAILY tramadol 50 mg tablet 50 mg PO Q4H PRN dextroamphetamine-amphetamine 10 mg tablet 1 tab PO BID amitriptyline 10 mg tablet 25 mg PO QPM omeprazole 20 mg capsule,delayed release(DR/EC) 20 mg PO DAILY Qty: 60 6RF ascorbate calcium (vitamin C) 500 mg tablet 500 mg PO DAILY cholecalciferol (vitamin D3) 10 mcg (400 unit) capsule 10 mcg PO DAILY turmeric 400 mg capsule PO microfibril. collagen hemostat Powder 1 applic topical ONCE albuterol sulfate 90 mcg/actuation Hfa Aerosol Inhaler 1 inh INHALATION QID PRN (Reason: asthma) carisoprodol 350 mg Tablet 350 mg PO BID lorazepam 1 mg Tablet 1 mg PO DAILY PRN (Reason: Anxiety) fluticasone propion-salmeterol [Advair Diskus] 250-50 mcg/dose Blister With Device 1 inh INHALATION BID diltiazem HCl 240 mg Capsule,Ext.Rel 24h Degradable 180 mg PO BID sennosides [senna] 8.6 mg Tablet 8.6 mg PO DAILY Follow up/Referrals: Maverick Ribeiro MD [Primary Care Provider] - 12/31/22 3:20 pm (Appt:12/31 @ 3:[address] Ribeiro ) Visit Report/Discharge Packet Stand Alone Forms: Patient Portal/API, Stroke Signs & Symptoms Discharge Data Primary Care Provider: Maverick Ribeiro Attending Provider: Tyler Lincoln Admit Date/Time: 12/14/22 09:26 Quality VTE Deep Vein Thrombosis/Pulmonary Embolism Present on Admission: No
[2022-12-15] MEDS: POTASSIUM CHLORIDE 20 MEQ TAB 40 MEQ PO (08:35)
[2022-12-15] MEDS: dilTIAZem CD 180 MG CAP PO (08:35)
[2022-12-15] MEDS: SERTRALINE 50 MG TABLET PO (08:35)
--- NOTE | 2022-12-15 08:44 | OT.IP.TRT ---
Occupational Therapy Treatment Note M2 OT-IP Current Condition Start: 12/14/22 16:49 Freq: Status: Active Protocol: Document 12/14/22 16:49 [facility] (Rec: 12/14/22 17:15 [facility] [id number]) Occupational Therapy Current Condition Current Condition Evaluation Date 12/14/22 Treatment Diagnosis Acute vertigo, possible TIA Diagnosis Onset Date 12/14/22 M3 OT- IP Subjective and Pain Start: 12/14/22 16:49 Freq: Status: Active Protocol: Document 12/15/22 09:08 [facility] (Rec: 12/15/22 10:39 [facility] [id number]) OT- Subjective Occupational Therapy Visit Type Type Treatment Note Visit Start Time 08:44 Visit Stop Time 09:03 Total Visit Minutes 19 Occupational Therapy Visit Comments Patient Comments Pt wanting to get dressed and states feels better today and ready to go home. Patient/Caregiver Goals TO go home. OT Pain Assessment Pain When Pain Assessed At Rest Pain Present Pain Present Denied Pain M4 OT- IP ADL's Start: 12/14/22 16:49 Freq: Status: Active Protocol: Document 12/15/22 09:08 [facility] (Rec: 12/15/22 10:39 [facility] [id number]) OT CYJ-Rhbh-Zgctclr General Evaluation Self-Feeding Ability Independent OT ADL-Grooming Comments OT Grooming Comments Not performed. OT ADL-Oral Care Comments Oral Care Comments Not performed. OT ADL-Dressing General Eval Upper Body Dressing Ability Independent Lower Body Dressing Ability Independent Comments OT Dressing Comments Pt able to get dressed with increased use of RUE today versus yesterday, however pt still tends to favor use of her LUE during ADL needs. OT ADL-Toileting General Evaluation Toileting Ability Independent OT ADL-Bathing Comments OT Bathing Comments Pt states wanting to shower at home. M5 OT- IP IADL's Start: 12/14/22 16:49 Freq: Status: Active Protocol: Document 12/14/22 16:49 [facility] (Rec: 12/14/22 17:15 [facility] [id number]) OT-Instrumental Activities of Daily Living Deficits IADL Deficits Identified Deficits Home Safety Awareness Awareness of Need for Assistance at Home Good Awareness Home Safety Comments Pt has word finding difficulties and relies on her for IADL and driving needs. Medication Management Medication Management Caregiver Administers Money Management Money Management Caregiver Provides Assistance Meal Preparation Meal Preparation Caregiver Provides Assist Primary School Teacher Librarian Primary School Teacher Librarian Caregiver Provides Assist Driving Driving Concerns Identified Regarding Safety M6 OT- IP Functional Cognition Start: 12/14/22 16:49 Freq: Status: Active Protocol: Document 12/15/22 09:08 [facility] (Rec: 12/15/22 10:39 [facility] [id number]) Cognitive Factors Limiting Selfcare Function Cognitive Comments Cognitive Assessment Comments Pt able to get her words out better today. M7 OT- IP Mobility and Balance Start: 12/14/22 16:49 Freq: Status: Active Protocol: Document 12/15/22 09:08 [facility] (Rec: 12/15/22 10:39 [facility] [id number]) OT- Bed Mobility Assessment Supine to Sit Supine to Sit Assist Independent OT-Transfer Assessment Sit to and From Stand Sit to and from Stand Independent Comments Mobility Comments Pt independent in the room today and able to excelsior picker items from the floor and no complaints of feeling dizzy today. OT- Balance Assessment Sitting Balance and Reactions Static Sitting Balance Ability Normal Dynamic Sitting Balance Ability Normal Standing Balance and Reactions Static Standing Balance Ability Normal Dynamic Standing Balance Ability Good M9 OT- IP Assessment and Plan Start: 12/14/22 16:49 Freq: Status: Active Protocol: Document 12/15/22 09:08 [facility] (Rec: 12/15/22 10:39 [facility] [id number]) OT Summary Assessment and Plan Potential Rehabilitation Potential Excellent Analytic Complexity at Evaluation Low Summary OT Impairments Strength,Balance,Coordination, Functional Cognition, Functional Mobility,Bathing, Activity Tolerance Progress Towards Goals Safe For Discharge Assessment Summary Pt states feeling better today and more steady on her feet. Pt able to get dressed independently on her own. Pt given FMS activities to work on at home. 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 Goals Bathing Goal Independent Shower Transfer Goal Independent Days to Meet Goals 1 Frequency of Treatment Frequency Of Treatment Once a Day Treatment Plan OT Treatment Plan ADL Training,Functional Cognition Training,Functional Mobility,Patient/Family Education,Discharge Planning Discharge Recommendations OT Discharge Recommendations Home with Assistance, Outpatient PT Transportation Needs at Discharge Private Vehicle
[2022-12-15 08:45] VITALS: BP 147/87; PULSE 70; RESP 18; TEMP 37.1; O2SAT 95
--- NOTE | 2022-12-15 11:37 | CM.DANOTE ---
Reviewed EMR for pt's status and anticipated home d/c needs. Met with pt at bedside to introduce self and role. Pt found to be dressed and ready for d/c, spouse en route to transport her home. Recommendations are for OP f/u for OT/PT. No further needs identified at this time. Discharge Planning/Care Management CM Discharge Assessment Start: 12/15/22 11:31 Freq: Status: Active Protocol: Document 12/15/22 11:32 [facility] (Rec: 12/15/22 11:36 [facility] [id number]) Discharge Planning Assessment Assigned Vocational Rehabilitation Technician RIDGE Robertson Advance Directives? Yes Advance Directives on File No History Provided By Patient,Significant Other Has Patient been admitted in last 30 Yes days? Prior Living Arrangements House Household Members spouse Type of transporation used prior to Drives own vehicle admit Independent with ADL's Yes Is patient alert and oriented? Yes Comment N/A Caregiver for Another No DME Already Rented / Owned Elevated Toilet Seat,Cane Patient/Family Preference OP PT Therapy,OP OT Therapy Comment Pt states that she has a PT in mind for OP f/u, will wait for OT pending how she progresses with PT. Discharge Plan Home Community Services Physical Therapy,Occupational Therapy Referrals Initiated None needed Review Status In Process Please Provide Date Initial DC 12/15/22 Assessment Was Performed
== END 2022-12-15 10:48 | disposition home or self-care (01) ==
LOC: ED 09:09 → AC 09:27
PROVIDERS: Admitting Provider Student in an Organized Health Care Education/Training Program; Emergency Provider Emergency Medicine; PCP Family Medicine; Visit Provider Student in an Organized Health Care Education/Training Program
DX: R42 Dizziness and giddiness (principal); R29.700 NIHSS score 0; I69.351 Hemiplegia and hemiparesis following cerebral infarction affecting right dominant side; I69.322 Dysarthria following cerebral infarction; I10 Essential (primary) hypertension; E78.5 Hyperlipidemia, unspecified; J44.9 Chronic obstructive pulmonary disease, unspecified; F90.9 Attention-deficit hyperactivity disorder, unspecified type
CPT/HCPCS: 36415; 70450; 70496; 70498; 70553; 71045; 80048; 80053; 80061; 82550; 82962; 83036; 83735; 84443; 84484; 85025; 85610; 85730; 93005; 93306; 96361; 96374; 96375; 97129; 97161; 97165; 97535; 99284; G0378; J0360

== ENCOUNTER → 2023-04-28 11:32 | Outpatient (CLI) | payer MEDICARE, OTHER, SELFPAY ==
[2022-12-14 12:00] VITALS: BMI 20.6
--- NOTE | 2023-04-28 11:35 | DI.RAD.S_ITS ---
PROCEDURE: XR HIP W PEL IF DONE LT 2V INDICATIONS: continued and worsening L hip pain, chronic TECHNIQUE: 2 views of the hip were acquired. COMPARISON: [facility], CR, XR HIP W PEL IF DONE LT 2V, 12/23/2021, 7:48. [facility], CR, XR HIP W PEL IF DONE RT 2V, 07/14/2019, 7:41. FINDINGS: Bones: No fractures or dislocations. No suspicious bony lesions. The visualized pelvic ring appears intact. Nonuniform joint space narrowing with osteophytic lipping of the acetabulum. Soft tissues: No suspicious soft tissue calcifications or masses. IMPRESSION: Mild bilateral hip osteoarthritis. Kellgren-Wilian Grade 2. Dictated by: Orlando Espitia M.D. on 04/28/2023 at 16:42 Approved by: Orlando Espitia M.D. on 04/28/2023 at 16:43
== END ==
PROVIDERS: PCP Family Medicine; Referring Provider Physician Assistant; Visit Provider Physician Assistant
DX: M16.0 Bilateral primary osteoarthritis of hip (principal)
CPT/HCPCS: 73502

== ENCOUNTER → 2023-11-03 10:37 | Outpatient (CLI) | payer MEDICARE, OTHER, SELFPAY ==
[2022-12-14 12:00] VITALS: BMI 20.6
== END ==
PROVIDERS: PCP Family Medicine; Visit Provider Urology
DX: R39.9 Unspecified symptoms and signs involving the genitourinary system (principal); N39.41 Urge incontinence; Z68.21 Body mass index [BMI] 21.0-21.9, adult
CPT/HCPCS: 51798; 81002; 87077; 87086; 87186; 99214